=== PATIENT | female | born 1990 | race African-American/Black ===

== ENCOUNTER 2022-11-16 07:20 | Inpatient (IN) | payer MEDICAID, OTHER, SELFPAY ==
[2022-11-16] VITALS (8 sets, daily range): BP systolic 98–151; BP diastolic 55–68; PULSE 82–117; RESP 14–30; TEMP 36.7–39.6; O2SAT 93–98; BMI 31.6; BMI 31.4
--- NOTE | 2022-11-16 | ECG_ITS ---
Test Reason : chest pain Blood Pressure : / mmHG Vent. Rate : 111 BPM Atrial Rate : 111 BPM P-R Int : 126 ms QRS Dur : 068 ms QT Int : 288 ms P-R-T Axes : 048 023 031 degrees QTc Int : 391 ms Sinus tachycardia Possible Left atrial enlargement Septal infarct , age undetermined Abnormal ECG No previous ECGs available Referred By: Adrian Welch Electronically Signed By:GRANT URBAN
--- NOTE | ~2022-11-16 | CT_ITS ---
EXAMINATION: CT ANGIOGRAM OF THE CHEST WITH AND WITHOUT CONTRAST (CT PULMONARY ANGIOGRAM FOR PE) CLINICAL INFORMATION: Reason for Exam Fever, chest pain, dyspnea R/OP COMPARISON: None available. TECHNIQUE: Prior to contrast administration, noncontrast localization images were obtained. Subsequently, multidetector volumetric imaging was performed from the thoracic inlet to below the diaphragms following the administration of 80 mL Omnipaque 350 intravenous contrast. No contrast reaction reported Sagittal, coronal, and MIP oblique sagittal reformatted images were obtained on the CT workstation, uploaded to PACS, and reviewed. This CT examination was performed using dose optimization techniques as appropriate, variously including the following: *Automated exposure control *Adjustment of mA and/or kV according to patient size (this includes techniques or standardized protocols for targeted exams where dose is matched to indication/reason for exam; i.e. extremities or head) *Use of iterative reconstruction technique Total exam dose-length product 214.78 mGy-cm FINDINGS: QUALITY OF STUDY/CONTRAST BOLUS: Satisfactory. PULMONARY ARTERIES: No pulmonary emboli. THORACIC AORTA: No aneurysm. LUNG: There is dense consolidation with air bronchogram in the right lower lobe involving entire right lower lobe and consistent with pneumonia. In addition there are few smaller sized foci of airspace disease seen through the right upper lobe in the right middle lobe. On the left there is a focus of airspace disease seen through the left upper lobe extending in the left lower lobe PLEURA: No pleural effusion or pneumothorax. MEDIASTINUM: Normal heart size. No pericardial effusion. No hilar or mediastinal lymphadenopathy. No evidence of septal bowing or right heart strain. CORONARY ARTERY CALCIFICATION: None visualized on this study. CHEST WALL/AXILLA: No axillary or internal mammary lymphadenopathy. OSSEOUS STRUCTURES: No acute or suspicious osseous abnormality. UPPER ABDOMEN: Unremarkable. No reflux of contrast into the hepatic veins to suggest elevated right heart pressures. CT/CT angio chest PE protocol IMPRESSION: 1. No evidence of pulmonary embolism. 2. Multifocal airspace disease with dense consolidation in the right lower lobe, most likely pneumonia. VTE: negative.
--- NOTE | ~2022-11-16 | CT_ITS ---
EXAMINATION: CT ABDOMEN AND PELVIS WITH CONTRAST CLINICAL INFORMATION: Fever, abdominal pain, diarrhea and left lower quadrant tenderness COMPARISON: None available. TECHNIQUE: Multidetector volumetric images were obtained from the superior aspect of the liver through the pubic symphysis following administration 85 mL of Omnipaque 350 intravenous contrast. Sagittal and coronal reformatted images were obtained on the technologist's workstation. Oral contrast: Yes This CT examination was performed using dose optimization techniques as appropriate, variously including the following: *Automated exposure control *Adjustment of mA and/or kV according to patient size (this includes techniques or standardized protocols for targeted exams where dose is matched to indication/reason for exam; i.e. extremities or head) *Use of iterative reconstruction technique DLP: 575 mGy-cm FINDINGS: LUNG BASES: Right lower lobe dense consolidation with air bronchograms probably representing pneumonia. Small 2 cm nodular opacity in the left lower lobe probably representing small pneumonia. Trace right pleural effusion. LIVER, GALLBLADDER, AND BILIARY TREE: The liver is normal in size, shape, and attenuation. No focal hepatic lesion or biliary ductal dilatation is present. The gallbladder is unremarkable with no evidence of radiopaque gallstones, gallbladder wall thickening, or obvious pericholecystic inflammatory changes. PANCREAS: Unremarkable. SPLEEN: Unremarkable. ADRENAL GLANDS: Unremarkable. KIDNEYS AND URETERS: The kidneys are normal in size, shape, and attenuation. No hydronephrosis, hydroureter, or calculi seen. No perinephric stranding. Small cyst in the lower pole of the left kidney. No imaging follow-up recommended. BLADDER: Unremarkable. GASTROINTESTINAL TRACT: The small and large bowel are unremarkable. The appendix is unremarkable. ABDOMINAL WALL: No significant hernia is appreciated. LYMPH NODES: Normal. VASCULAR: Unremarkable. PELVIC VISCERA: Unremarkable. OSSEOUS STRUCTURES: Unremarkable. CT/CT abdomen pelvis w IV con IMPRESSION: Large right lower lobe pneumonia and probable small pneumonia in the left lower lobe. Very small right pleural effusion. No acute abdominal findings. Fleischner guidelines were followed.
--- NOTE | 2022-11-16 07:44 | ED_ITS ---
HPI - General Adult General Chief complaint: General Medical Stated complaint: Headache Sore Throat Etc Time Seen by Provider: 11/16/22 07:44 Source: patient Mode of arrival: ambulatory Limitations: no limitations History of Present Illness HPI narrative: 32-year-old female who presents emergency department for evaluation of headache, chest pain, abdominal pain, cough, shortness of breath, fever and diarrhea. Zev mills states that she became ill last Saturday (11/10/2022-6 days prior). Patient states that all of her symptoms started at once. She complains of a constant, throbbing headache, which is located diffusely throughout her head and is 6/10 at its worst. The headache came on gradually. She states that she has a cough which is nonproductive. She has chest pain which is worse with inspiration. She states she has shortness of breath at rest and dyspnea on exertion. She complains of diffuse abdominal pain which she describes as a pain which is 8/10 at its worst. Patient states she has had frequent watery diarrhea, she states that this occurs any time she drinks fluid and has had multiple episodes per day. She denies any blood in the diarrhea. She complains of feeling very weak and has diffuse myalgias and arthralgias. She has had urinary frequency with no dysuria. The patient denies any recent travel, she has not been on antibiotics. She is not aware of any sick contacts. She denies any tick bites and does not hike or walk wooded areas. Related Data Allergies Allergy/AdvReac Type Severity Reaction Status Date / Time No Known Allergies Allergy Verified 11/16/22 07:45 Review of Systems Review of Systems: Yes all other systems are reviewed and are negative [facility] Past Medical History [facility] Narrative: Past medical history: Low blood pressure. Surgical history: None. Social history: She denies tobacco, alcohol and drug use. Social History Social History Alcohol intake: never Smoked in Last 30 Days: No Use of substances other than those prescribed or required for medical reasons: No Advance Directives: No Advance Directives Information Provided: No Patient : No Physical Exam ED Vital Signs: Vital Signs - 24 hr 11/16/22 07:37 11/16/22 08:21 11/16/22 09:17 Temperature 103.2 F H Pulse Rate 117 H 114 H 98 Respiratory Rate 20 24 H 30 H Blood Pressure 115/66 114/68 109/63 Pulse Oximetry 95 96 98 Oxygen Delivery Method Room Air Room Air 11/16/22 09:31 Temperature 101.5 F H Pulse Rate 100 Respiratory Rate 29 H Blood Pressure 98/60 Pulse Oximetry 97 Oxygen Delivery Method Room Air BMI result Body Mass Index 31.6 Patient was febrile with a temperature of a 103.2 degrees, elevated heart rate of 117, normal blood pressure of 115/66. Exam: General: Awake, alert in no distress Head: Normocephalic, atraumatic EENT: PERRL, Lids normal, sclera normal, conjunctiva normal, nose normal , ears normal, throat without erythema or exudates Neck: Supple, no adenopathy, trachea midline and nontender Lung: breath sounds symmetric, diffuse rales right greater than left, no wheezing or rhonchi Chest: symmetric movement, nontender Heart: Tachycardia with normal rhythm, normal S1, S2 no murmurs or rubs Abdomen: soft, mild to moderate diffuse tenderness, moderate left lower quadrant tenderness, nondistended, normal bowel sounds Back: no vertebral tenderness, no CVAT Extremities: no deformities, moves all extremities symmetrically Skin: no rashes, no lesion, normal color and warmth Neuro: Awake, alert, oriented, normal speech, cranial nerves intact, moves all extremities symmetrically Psych: Pleasant, cooperative Medications Administered Discontinued Medications Generic Name Dose Route Start Last Admin Trade Name Freq PRN Reason Stop Dose Admin Acetaminophen 975 mg 11/16/22 07:51 11/16/22 08:18 Acetaminophen 325 Mg Tablet PO 11/16/22 07:52 975 mg ONCE ONE Administration Sodium Chloride 1,710 mls @ 1,710 mls/hr 11/16/22 07:48 11/16/22 09:17 Ns IV 11/16/22 08:47 Infused .Q1H STA Infusion Iohexol 85 ml 11/16/22 09:17 11/16/22 09:18 Iohexol 350 Mg/Ml 100 Ml Infus..Btl IV 11/16/22 09:18 85 ml ONCE ONE Administration Ketorolac Tromethamine 15 mg 11/16/22 08:05 11/16/22 08:18 Ketorolac Tromethamine 15 Mg/Ml Vial IVPUSH 11/16/22 08:06 15 mg ONCE STA Administration Ondansetron HCl 4 mg 11/16/22 08:05 11/16/22 08:18 Ondansetron Hcl 4 Mg/2 Ml Vial IVPUSH 11/16/22 08:06 4 mg ONCE ONE Administration Medical Decision Making Medical Decision Making [facility] Narrative: 08:15: 32-year-old female who presents emergency department for evaluation of headache, chest pain, shortness of breath, cough, abdominal pain, diarrhea, weakness and fever times 6 days. Patient's vital signs did reveal an elevated temperature of 103.2 degrees F and elevated heart rate of 117. Patient does meet SIRS criteria. Patient was made a sepsis alert. Patient's lung exam did reveal diffuse rales increased on the right compared to the left, abdominal exam revealed diffuse tenderness with increased left lower quadrant tenderness. The following evaluation was ordered: CBC, CMP, lipase, lactic acid, PT/INR, PTT, quantitative beta-hCG, C diff, GI panel, influenza and COVID 19 test, urinalysis, blood culture x2. I will obtain the CT pulmonary angiogram PE protocol and CT scan of the abdomen pelvis with IV contrast. I did order normal saline 30 cc/kilogram bolus based on the patient's ideal body weight (BMI is 31.6). 10:46: The patient's laboratory evaluation revealed a normal WBC and normal lactic acid with slight elevation in her LFTs. Patient's CT pulmonary angiogram PE protocol revealed no pulmonary embolism but the patient does have large right lower lobe infiltrate. CT scan of the abdomen pelvis with IV contrast did not reveal any acute abdominal findings, radiologist did note the right-sided pneumonia as well as possible left lower lobe pneumonia. Patient's presentation is consistent with a bilobar pneumonia, I ordered ceftriaxone 1 g IV and Zithromax 500 mg IV. I did discuss the patient's presentation over tiger text with the covering hospitalist, Dr. Rao. Differential Diagnosis Differential Diagnoses: The differential diagnosis associated with the presentation includes 08:15: Differential diagnosis includes was not limited to viral syndrome, pneumonia, urinary tract infection, COVID-19, influenza, C difficile colitis, diverticulitis, pulmonary embolism Admission/Observation Consideration of admission/observation: Escalation of care including admissio n/observation considered Consult Healthcare Provider Management of the patient was discussed with: Hospitalist Lab Data [facility] Lab Attestation statement: I reviewed the patient's lab results. My independent interpretation patient's laboratory evaluation is as follows: WBC was normal 9500. AST and ALT were elevated 52 and 46. COVID-19 influenza were negative. Lactic acid was normal at 1.7. Urinalysis was positive for protein, microscopic was negative for WBCs and bacteria. 11/16/22 08:01 11/16/22 08:01 Labs: Lab Results 11/16/22 11/16/22 11/16/22 Range/Units 08:01 08:01 08:01 WBC 9.5 (4.8-10.8) X10*3/uL RBC 4.33 (4.20-5.50) X10*6/uL Hgb 11.9 L (12.0-16.0) g/dl Hct 36.3 L (37.0-47.0) % MCV 83.8 (80.0-98.0) fL MCH 27.5 (27.0-33.0) pg MCHC 32.8 (31.0-35.0) g/dl RDW 13.2 (11.0-16.0) % Plt Count 180 (160-400) X10*3/uL MPV 11.1 (9.4-12.3) fL Immature Gran % (Auto) 0.8 H (0.0-0.4) % Neut % (Auto) 81.3 H (45-73) % Lymph % (Auto) 10.8 L (20-40) % [place] % (Auto) 6.2 (2-11) % Eos % (Auto) 0.7 (0-4) % Baso % (Auto) 0.2 (0-2) % Lymph # (Auto) 1.0 L (1.2-4.9) X10*3/uL [place] # (Auto) 0.6 (0.1-1.2) X10*3/uL Eos # (Auto) 0.1 (0.0-0.4) X10*3/uL Baso # (Auto) 0.0 (0.0-0.2) X10*3/uL Abs Immat Gran (auto) 0.08 H (0.00-0.03) X10*3/uL Absolute Neuts (auto) 7.7 (2.0-8.3) x10*3/uL Absolute Nucleated RBC 0.000 (0.0-0.012) X10*3/uL Nucleated RBC % (auto) 0.0 (0.0-0.2) /100WBC PT 16.0 H (11.1-13.3) SEC INR 1.3 H (0.9-1.1) APTT 27.0 (26.0-36.4) SEC Sodium 134 L (135-145) mmol/L Potassium 4.1 (3.3-5.1) mmol/L Chloride 103 (96-108) mmol/L Carbon Dioxide 23 (22-29) mmol/L Anion Gap 12 (12-20) BUN 8 L (9-16) mg/dL Creatinine 1.02 (0.5-1.4) mg/dL Estim Creat Clear Calc 84.2 Estimated GFR > 60 Random Glucose 91 (60-115) mg/dL Lactic Acid (0.5-2.0) mmol/L Calcium 9.5 (8.4-10.2) mg/dL Total Bilirubin 0.3 (0.0-1.0) mg/dL AST 52 H (5-31) U/L ALT 46 H (0-31) U/L Alkaline Phosphatase 71 (39-117) U/L Total Protein 7.5 (6.5-8.0) g/dL Albumin 3.5 (3.5-5.0) g/dL Lipase 27 (8-78) U/L Beta HCG, Quant mIU/mL Urine Color Urine Appearance Urine pH (5.0-9.0) Ur Specific [employer] (1.005-1.025) Urine Protein (Neg-Trace) mg/dL Urine Glucose (UA) (Negative) mg/dL Urine Ketones (Negative) mg/dL Urine Blood (Negative) Urine Nitrite (Negative) Ur Leukocyte Esterase (Negative) Urine RBC (0-2) /HPF Urine WBC (0-5) /HPF Ur Squamous Epith Cells (0-2) /HPF Urine Bacteria (None Seen) Hyaline Casts (0-2) /LPF COVID-19 (MERLE) (Negative) COVID-19 Clin Com Influenza Type A (NIYA) (Negative) Influenza Type B (NIYA) (Negative) Influenza A & B Note 11/16/22 11/16/22 11/16/22 Range/Units 08:01 08:01 08:06 WBC (4.8-10.8) X10*3/uL RBC (4.20-5.50) X10*6/uL Hgb (12.0-16.0) g/dl Hct (37.0-47.0) % MCV (80.0-98.0) fL MCH (27.0-33.0) pg MCHC (31.0-35.0) g/dl RDW (11.0-16.0) % Plt Count (160-400) X10*3/uL MPV (9.4-12.3) fL Immature Gran % (Auto) (0.0-0.4) % Neut % (Auto) (45-73) % Lymph % (Auto) (20-40) % [place] % (Auto) (2-11) % Eos % (Auto) (0-4) % Baso % (Auto) (0-2) % Lymph # (Auto) (1.2-4.9) X10*3/uL [place] # (Auto) (0.1-1.2) X10*3/uL Eos # (Auto) (0.0-0.4) X10*3/uL Baso # (Auto) (0.0-0.2) X10*3/uL Abs Immat Gran (auto) (0.00-0.03) X10*3/uL Absolute Neuts (auto) (2.0-8.3) x10*3/uL Absolute Nucleated RBC (0.0-0.012) X10*3/uL Nucleated RBC % (auto) (0.0-0.2) /100WBC PT (11.1-13.3) SEC INR (0.9-1.1) APTT (26.0-36.4) SEC Sodium (135-145) mmol/L Potassium (3.3-5.1) mmol/L Chloride (96-108) mmol/L Carbon Dioxide (22-29) mmol/L Anion Gap (12-20) BUN (9-16) mg/dL Creatinine (0.5-1.4) mg/dL Estim Creat Clear Calc Estimated GFR Random Glucose (60-115) mg/dL Lactic Acid 1.7 (0.5-2.0) mmol/L Calcium (8.4-10.2) mg/dL Total Bilirubin (0.0-1.0) mg/dL AST (5-31) U/L ALT (0-31) U/L Alkaline Phosphatase (39-117) U/L Total Protein (6.5-8.0) g/dL Albumin (3.5-5.0) g/dL Lipase (8-78) U/L Beta HCG, Quant < 2 mIU/mL Urine Color Urine Appearance Urine pH (5.0-9.0) Ur Specific [employer] (1.005-1.025) Urine Protein (Neg-Trace) mg/dL Urine Glucose (UA) (Negative) mg/dL Urine Ketones (Negative) mg/dL Urine Blood (Negative) Urine Nitrite (Negative) Ur Leukocyte Esterase (Negative) Urine RBC (0-2) /HPF Urine WBC (0-5) /HPF Ur Squamous Epith Cells (0-2) /HPF Urine Bacteria (None Seen) Hyaline Casts (0-2) /LPF COVID-19 (MERLE) Negative (Negative) COVID-19 Clin Com See Note Influenza Type A (NIYA) (Negative) Influenza Type B (NIYA) (Negative) Influenza A & B Note 11/16/22 11/16/22 Range/Units 08:18 09:45 WBC (4.8-10.8) X10*3/uL RBC (4.20-5.50) X10*6/uL Hgb (12.0-16.0) g/dl Hct (37.0-47.0) % MCV (80.0-98.0) fL MCH (27.0-33.0) pg MCHC (31.0-35.0) g/dl RDW (11.0-16.0) % Plt Count (160-400) X10*3/uL MPV (9.4-12.3) fL Immature Gran % (Auto) (0.0-0.4) % Neut % (Auto) (45-73) % Lymph % (Auto) (20-40) % [place] % (Auto) (2-11) % Eos % (Auto) (0-4) % Baso % (Auto) (0-2) % Lymph # (Auto) (1.2-4.9) X10*3/uL [place] # (Auto) (0.1-1.2) X10*3/uL Eos # (Auto) (0.0-0.4) X10*3/uL Baso # (Auto) (0.0-0.2) X10*3/uL Abs Immat Gran (auto) (0.00-0.03) X10*3/uL Absolute Neuts (auto) (2.0-8.3) x10*3/uL Absolute Nucleated RBC (0.0-0.012) X10*3/uL Nucleated RBC % (auto) (0.0-0.2) /100WBC PT (11.1-13.3) SEC INR (0.9-1.1) APTT (26.0-36.4) SEC Sodium (135-145) mmol/L Potassium (3.3-5.1) mmol/L Chloride (96-108) mmol/L Carbon Dioxide (22-29) mmol/L Anion Gap (12-20) BUN (9-16) mg/dL Creatinine (0.5-1.4) mg/dL Estim Creat Clear Calc Estimated GFR Random Glucose (60-115) mg/dL Lactic Acid (0.5-2.0) mmol/L Calcium (8.4-10.2) mg/dL Total Bilirubin (0.0-1.0) mg/dL AST (5-31) U/L ALT (0-31) U/L Alkaline Phosphatase (39-117) U/L Total Protein (6.5-8.0) g/dL Albumin (3.5-5.0) g/dL Lipase (8-78) U/L Beta HCG, Quant mIU/mL Urine Color Yellow Urine Appearance Clear Urine pH 6.5 (5.0-9.0) Ur Specific [employer] >= 1.030 H (1.005-1.025) Urine Protein 30 (1+) H (Neg-Trace) mg/dL Urine Glucose (UA) Negative (Negative) mg/dL Urine Ketones Trace (Negative) mg/dL Urine Blood Negative (Negative) Urine Nitrite Negative (Negative) Ur Leukocyte Esterase Negative (Negative) Urine RBC 0-2 (0-2) /HPF Urine WBC 0-5 (0-5) /HPF Ur Squamous Epith Cells 3-5 (0-2) /HPF Urine Bacteria None Seen (None Seen) Hyaline Casts 0-2 (0-2) /LPF COVID-19 (MERLE) (Negative) COVID-19 Clin Com Influenza Type A (NIYA) Negative (Negative) Influenza Type B (NIYA) Negative (Negative) Influenza A & B Note See Note Independent Interpretation I performed an independent interpretation of an: CT Scan Radiology Impression Discussion of test interpretation with radiology: I have reviewed the radiologist's reading. Radiologist Impression: CT angio chest PE protocol IMPRESSION: 1. No evidence of pulmonary embolism. 2. Multifocal airspace disease with dense consolidation in the right lower lobe, most likely pneumonia. VTE: negative. Dictated By:Eula Maravilla MD CT abdomen pelvis w IV con IMPRESSION: Large right lower lobe pneumonia and probable small pneumonia in the left lower lobe. Very small right pleural effusion. No acute abdominal findings. Fleischner guidelines were followed. Dictated By:Roxana Valdez MD Critical Care Time Critical Care Time Critical Care Time: Yes Total Critical Care Time: 40 Attestation: Critical Care: The patient was critically ill with a high probability of imminent or life threatening deterioration. I spent greater than 30 minutes of discontinuous time evaluating the patient,delivering critical care at the bedside, discussing and evaluating pertinent data with consultants. Critical care time does not include time spent performing separately billable procedures or teaching. Total time spent performing critical care was 40 minutes.
[2022-11-16 08:08] LABS: MANUAL DIFF FLAG NO
[2022-11-16 08:11] LABS: Basophils Percent Auto 0.2 % (0-2); Eosinophils Absolute Auto 0.1 X10*3/uL (0.0-0.4); Eosinophils Percent Auto 0.7 % (0-4); Hematocrit 36.3 % (37.0-47.0); Hemoglobin 11.9 g/dl (12.0-16.0); Imm Gran Abs Auto 0.08 X10*3/uL (0.00-0.03); Imm Gran Pct Auto 0.8 % (0.0-0.4); Lymphocytes Percent Auto 10.8 % (20-40); Mean Corpuscular HGB Conc 32.8 g/dl (31.0-35.0); Mean Corpuscular Hemoglobin 27.5 pg (27.0-33.0); Mean Corpuscular Volume 83.8 fL (80.0-98.0); Mean Platelet Volume 11.1 fL (9.4-12.3); Monocytes Absolute Auto 0.6 X10*3/uL (0.1-1.2); Monocytes Percent Auto 6.2 % (2-11); Neutrophils Absolute Auto 7.7 x10*3/uL (2.0-8.3); Neutrophils Percent Auto 81.3 % (45-73); Platelet Count 180 X10*3/uL (160-400); Red Blood Count 4.33 X10*6/uL (4.20-5.50); Red Cell Distribution Width 13.2 % (11.0-16.0); White Blood Count 9.5 X10*3/uL (4.8-10.8)
[2022-11-16 08:15] LABS: INTERNATIONAL NORM RATIO 1.3 (0.9-1.1)
[2022-11-16] MEDS: Acetaminophen 325 MG TABLET 975 MG PO (08:18)
[2022-11-16] MEDS: ondansetron HCL 4 MG/2 ML VIAL IVPUSH (08:18)
[2022-11-16] MEDS: Ketorolac Tromethamine 15 MG/ML VIAL IVPUSH (08:18)
[2022-11-16 08:33] LABS: Lactic Acid 1.7 mmol/L (0.5-2.0)
[2022-11-16 08:34] LABS: COVID-19 Test Negative (Negative); IDNOW Serial# BCCEAD1C
[2022-11-16 08:35] LABS: Alanine Aminotransferase 46 U/L (0-31); Albumin Level 3.5 g/dL (3.5-5.0); Alkaline Phosphatase 71 U/L (39-117); Anion Gap 12 (12-20); Aspartate Amino Transferase 52 U/L (5-31); Bilirubin Total 0.3 mg/dL (0.0-1.0); Blood Urea Nitrogen 8 mg/dL (9-16); Calcium 9.5 mg/dL (8.4-10.2); Carbon Dioxide 23 mmol/L (22-29); Chloride 103 mmol/L (96-108); Creatinine Clr Calc Pharmacy 84.2; Estimated Glomerular Filt Rate > 60; Glucose Random 91 mg/dL (60-115); Lipase 27 U/L (8-78); Potassium 4.1 mmol/L (3.3-5.1); Sodium 134 mmol/L (135-145); Total Protein 7.5 g/dL (6.5-8.0)
[2022-11-16 08:41] LABS: HCG Quantitative < 2 mIU/mL
[2022-11-16 09:04] LABS: IDNOW Serial# 9DB6401D; Influenza A Negative (Negative); Influenza B2 Negative (Negative)
[2022-11-16] MEDS: iohexoL 350 MG/ML 100 ML INFUS..BTL 85 ML IV (09:18)
[2022-11-16 10:04] LABS: Appearance Urine Clear; Color Urine Yellow; Glucose Urine UA Negative (Negative); Leukocyte Esterase Urine Negative (Negative); Nitrite Urine Negative (Negative); PH 6.5 (5.0-9.0); Specific Gravity - Urine >= 1.030 (1.005-1.025); UMIC TRIGGER UACC YES; Urine Blood Negative (Negative); Urine Ketones Trace mg/dL (Negative); Urine Protein 30 (1+) mg/dL (Neg-Trace)
[2022-11-16 10:09] LABS: RBC Urine 0-2 /HPF (0-2); WBC Urine 0-5 /HPF (0-5)
[2022-11-16 10:10] LABS: Bacteria Urine None Seen (None Seen); Hyaline Casts Urine 0-2 /LPF (0-2)
[2022-11-16] MEDS: cefTRIAXone sodium 1 GM in 0.9 % Sodium Chloride 50 ML IV (11:04)
--- NOTE | 2022-11-16 11:22 | PHA.MEDREC ---
Pharmacy Consult ? Medication Reconciliation Pharmacy has completed the medication reconciliation.
[2022-11-16] MEDS: Azithromycin 500 MG in 0.9 % Sodium Chloride 250 ML 125 MG IV (11:42)
--- NOTE | 2022-11-16 12:10 | PM.IMHP ---
History of Present Illness Date of Service: 11/16/22 Chief Complaint: Fever, cough, headach A previously healthy 32 years old lady who presents to the hospital with 1 weeks of SOB, fever and cough. She reports complaining of headache at the beginning which worsened over the last few day associated with fever, chills, cough, nausea, diarrha and generalized weakness. denies chest pain, palpitations, LOC, rash, urinary symptoms. she tried Tylenol at home and thought she was improving before feeling really sick last 2 days. In ED found to be febrile, tachycardic with evidence of pneumonia on CXR. admitted for treatment. Review of Systems Review of Systems: reporting fever, chills and weakness No chest pain, palpitation having shortness of breath and coughing No abdominal pain, nausea or vomiting No urinary symptoms No any rash or wounds PMFSH Social History Alcohol intake: never Patient Tobacco Use Status: Never used Tobacco Smoked in Last 30 Days: No Use of substances other than those prescribed or required for medical reasons: No Advance Directives: No Advance Directives Information Provided: No Nutrition Risks: No Nutritional Risk Patient : No Meds Allergies Allergy/AdvReac Type Severity Reaction Status Date / Time No Known Allergies Allergy Verified 11/16/22 07:45 Active Medications: Current Medications Acetaminophen (Acetaminophen 325 Mg Tablet) 650 mg PO Q6H PRN PRN Reason: Pain, Mild (Pain Scale 1-3) Azithromycin 500 mg/ Sodium (Chloride) 250 mls @ 125 mls/hr IV ONCE ONE Stop: 11/16/22 12:38 Last Admin: 11/16/22 11:42 Dose: 125 mls/hr Piperacillin Sod/Tazobactam (Sod 4.5 gm/ Sodium Chloride) 100 mls @ 200 mls/hr IV Q6H AGGIE Ondansetron HCl (Ondansetron Hcl 4 Mg/2 Ml Vial) 4 mg IVPUSH Q8H PRN PRN Reason: Nausea and Vomiting Sodium Chloride (0.9 % Sodium Chloride Flush 3 Ml Syringe) 3 ml IVFLUSH QSHIFT [facility] Home Medications Medication Instructions Recorded Confirmed Last Taken Type desogestrel 0.15 mg-ethinyl 1 tab PO DAILY 11/16/22 11/16/22 11/10/22 History estradiol 0.03 mg tablet (Apri) Physical Exam Vital Signs and Narrative: Vital Signs: Last Vital Signs Temp 101.5 F H 11/16/22 09:31 Pulse 85 11/16/22 11:04 Resp 22 H 11/16/22 11:04 BP 116/60 11/16/22 11:04 Pulse Ox 98 11/16/22 11:04 O2 Del Method Room Air 11/16/22 11:04 BMI result Body Mass Index 31.6 Const: Other: Constitutional : Awake, interactive, not in distress Neck : Normal inspection, Supple Cardiovascular : RRR, no JVP, no lower extremity edema Respiratory : good bilateral air entry, basal crackles more on right side, on RA Gastrointestinal: soft, lax, Normal bowel sounds, Non tender Skin : Warm, Dry Neurological : Alert & oriented x3, No focal deficit Results Labs 11/16/22 08:01 11/16/22 08:01 Labs: Laboratory Results - last 24 hr 11/16/22 11/16/22 11/16/22 08:01 08:01 08:01 MCV 83.8 MCH 27.5 MCHC 32.8 RDW 13.2 Plt Count 180 MPV 11.1 Immature Gran % (Auto) 0.8 H Neut % (Auto) 81.3 H Lymph % (Auto) 10.[address] [place] % (Auto) 6.2 Eos % (Auto) 0.7 Baso % (Auto) 0.2 Lymph # (Auto) 1.[address] # (Auto) 0.6 Eos # (Auto) 0.1 Baso # (Auto) 0.0 Abs Immat Gran (auto) 0.08 H Absolute Neuts (auto) 7.7 Absolute Nucleated RBC 0.000 Nucleated RBC % (auto) 0.0 PT 16.0 H INR 1.3 H APTT 27.0 Anion Gap 12 Estim Creat Clear Calc 84.2 Estimated GFR > 60 Random Glucose 91 Lactic Acid Calcium 9.5 Total Bilirubin 0.3 AST 52 H ALT 46 H Alkaline Phosphatase 71 Total Protein 7.5 Albumin 3.5 Lipase 27 Beta HCG, Quant Urine Color Urine Appearance Urine pH Ur Specific [place] Urine Protein Urine Glucose (UA) Urine Ketones Urine Blood Urine Nitrite Ur Leukocyte Esterase Urine RBC Urine WBC Ur Squamous Epith Cells Urine Bacteria Hyaline Casts COVID-19 (MERLE) COVID-19 Clin Com Influenza Type A (NIYA) Influenza Type B (NIYA) Influenza A & B Note 11/16/22 11/16/22 11/16/22 08:01 08:01 08:06 MCV MCH MCHC RDW Plt Count MPV Immature Gran % (Auto) Neut % (Auto) Lymph % (Auto) [place] % (Auto) Eos % (Auto) Baso % (Auto) Lymph # (Auto) [place] # (Auto) Eos # (Auto) Baso # (Auto) Abs Immat Gran (auto) Absolute Neuts (auto) Absolute Nucleated RBC Nucleated RBC % (auto) PT INR APTT Anion Gap Estim Creat Clear Calc Estimated GFR Random Glucose Lactic Acid 1.7 Calcium Total Bilirubin AST ALT Alkaline Phosphatase Total Protein Albumin Lipase Beta HCG, Quant < 2 Urine Color Urine Appearance Urine pH Ur Specific [place] Urine Protein Urine Glucose (UA) Urine Ketones Urine Blood Urine Nitrite Ur Leukocyte Esterase Urine RBC Urine WBC Ur Squamous Epith Cells Urine Bacteria Hyaline Casts COVID-19 (MERLE) Negative COVID-19 Clin Com See Note Influenza Type A (NIYA) Influenza Type B (NIYA) Influenza A & B Note 11/16/22 11/16/22 08:18 09:45 MCV MCH MCHC RDW Plt Count MPV Immature Gran % (Auto) Neut % (Auto) Lymph % (Auto) [place] % (Auto) Eos % (Auto) Baso % (Auto) Lymph # (Auto) [facility] # (Auto) Eos # (Auto) Baso # (Auto) Abs Immat Gran (auto) Absolute Neuts (auto) Absolute Nucleated RBC Nucleated RBC % (auto) PT INR APTT Anion Gap Estim Creat Clear Calc Estimated GFR Random Glucose Lactic Acid Calcium Total Bilirubin AST ALT Alkaline Phosphatase Total Protein Albumin Lipase Beta HCG, Quant Urine Color Yellow Urine Appearance Clear Urine pH 6.5 Ur Specific [place] >= 1.030 H Urine Protein 30 (1+) H Urine Glucose (UA) Negative Urine Ketones Trace Urine Blood Negative Urine Nitrite Negative Ur Leukocyte Esterase Negative Urine RBC 0-2 Urine WBC 0-5 Ur Squamous Epith Cells 3-5 Urine Bacteria None Seen Hyaline Casts 0-2 COVID-19 (MERLE) COVID-19 Clin Com Influenza Type A (NIYA) Negative Influenza Type B (NIYA) Negative Influenza A & B Note See Note Imaging Radiologist's Impressions: Impressions Abdomen/Pelvis CT 11/16/22 09:12 IMPRESSION: Large right lower lobe pneumonia and probable small pneumonia in the left lower lobe. Very small right pleural effusion. No acute abdominal findings. Fleischner guidelines were followed. Chest CTA 11/16/22 09:12 IMPRESSION: 1. No evidence of pulmonary embolism. 2. Multifocal airspace disease with dense consolidation in the right lower lobe, most likely pneumonia. VTE: negative. Assessment and Plan (1) Sepsis: Status: Acute (2) Pneumonia: Qualifiers: Laterality: bilateral Lung location: lower lobe of lung Pneumonia type: due to unspecified organism Qualified Code(s): J18.9 - Pneumonia, unspecified organism Status: Acute (3) Hyponatremia: Status: Acute (4) Transaminitis: Status: Acute Plan A previously healthy 32 years old lady who presents to the hospital with 1 weeks of SOB, fever and cough. Sepsis 2/2 community acquired pneumonia Leukocytotis and tachycardia , normal LA CXR, CT as reported Start Zosyn along with Azithromycin Pending blood cultures Tylenol for fever Tessalon for cough mild hyponatremia liekly from acute illness, to follow BMP Transaminitis likely related to sepsis, to repeat LFT DVT PPx early ambulation Patient needs overnight hospital stay for treatment of sepsis pending final blood cultures Time Spent With Patient Time: Total time managing care of this patient today ____ minutes. Quality Stroke Does the patient have a stroke diagnosis?: No VTE Prior VTE?: No VTE Risk Level:: Medical - low VTE Device Contraindication: Treatment Not Indicated VTE Drug Contraindication: Treatment Not Indicated
[2022-11-16 15:24] LABS: Amphetamine Screen Urine Not Detected (Not Detect); Barbiturates, Urine Not Detected (Not Detect); Benzodiazepines Screen Urine Not Detected (Not Detect); Cannabinoid Screen Urine Not Detected (Not Detect); Cocaine Screen Urine Not Detected (Not Detect); Fentanyl, urine Not Detected (Not Detect); Opiate Screen Urine Not Detected (Not Detect); Phencyclidine Screen Urine Not Detected (Not Detect)
[2022-11-16] MEDS: Benzonatate 100 MG CAPSULE PO ×2 (15:28→20:37)
[2022-11-16] MEDS: Piperacillin Sodium/Tazobactam 4.5 GM in 0.9 % Sodium Chloride 100 ML IV ×2 (15:28→20:38)
[2022-11-16] MEDS: 0.9 % Sodium Chloride Flush 3 ML SYRINGE IVFLUSH (15:29)
[2022-11-16] MEDS: Acetaminophen 325 MG TABLET 650 MG PO (16:00)
[2022-11-17] MEDS: 0.9 % Sodium Chloride Flush 3 ML SYRINGE IVFLUSH ×4 (00:03→20:25)
[2022-11-17] MEDS: Piperacillin Sodium/Tazobactam 4.5 GM in 0.9 % Sodium Chloride 100 ML IV ×4 (03:41→20:25)
[2022-11-17 04:00] VITALS: BP 117/55; PULSE 90; RESP 16; TEMP 38.1; O2SAT 94
--- NOTE | 2022-11-17 04:53 | PC.NURSE ---
Patient with low grade temp and headache, refusing tylenol at this time.
[2022-11-17 05:58] LABS: Hematocrit 35.4 % (37.0-47.0); Hemoglobin 11.7 g/dl (12.0-16.0); Mean Corpuscular HGB Conc 33.1 g/dl (31.0-35.0); Mean Corpuscular Hemoglobin 27.5 pg (27.0-33.0); Mean Corpuscular Volume 83.1 fL (80.0-98.0); Mean Platelet Volume 12.1 fL (9.4-12.3); Platelet Count 195 X10*3/uL (160-400); Red Blood Count 4.26 X10*6/uL (4.20-5.50); Red Cell Distribution Width 13.5 % (11.0-16.0); White Blood Count 7.8 X10*3/uL (4.8-10.8)
[2022-11-17 06:18] LABS: Anion Gap 14 (12-20); Blood Urea Nitrogen 6 mg/dL (9-16); Calcium 8.7 mg/dL (8.4-10.2); Carbon Dioxide 22 mmol/L (22-29); Chloride 104 mmol/L (96-108); Creatinine Clr Calc Pharmacy 80.8; Estimated Glomerular Filt Rate 59; Glucose Random 92 mg/dL (60-115); Potassium 3.9 mmol/L (3.3-5.1); Sodium 136 mmol/L (135-145)
[2022-11-17 07:30] VITALS: BP 109/60; PULSE 83; RESP 18; TEMP 37.8; O2SAT 97
[2022-11-17] MEDS: Benzonatate 100 MG CAPSULE PO ×3 (08:58→20:25)
[2022-11-17] MEDS: Acetaminophen 325 MG TABLET 650 MG PO ×2 (08:58→20:26)
--- NOTE | 2022-11-17 09:58 | MHC.CM.PN ---
PT REPORTS SHE LIVES WITH HER NIECE AND HOUSING IS SECURE SHE DENIES USE OF DME OR HOME SERVICES PT HAS NO HCP, DECLINES TO COMPLETE ONE SHE HAS NO HEALTH INSURANCE, REFERRAL SENT TO [facility] PT AWARE THEY WILL CONTACT HER AND ASSIST HER WITH OBTAINING HEALTH INSURANCE SHE WAS ENCOURAGED TO OBTAIN A PCP ONCE INSURANCE IS ACTIVE PT DOES REPORT OCCASIONAL FOOD INSECURITY, [id number] INFO HANDOUT PROVIDED DCP: HOME NO SERVICES PT REPORTS SHE WILL HAVE A RIDE
--- NOTE | 2022-11-17 10:28 | HO.PM.IMPN ---
Subjective Subjective Date of Service: 11/17/22 Interval History: Seen and evaluated Feels better overall but still chilly and SOB On RA still spiking low grade fevers Review of Systems reporting chills and weakness No chest pain, palpitation having shortness of breath and coughing No abdominal pain, nausea or vomiting No urinary symptoms No any rash or wounds Physical Exam Vital Signs: Vital Signs: Last Vital Signs Temp 100.0 F 11/17/22 07:30 Pulse 83 11/17/22 07:30 Resp 18 11/17/22 07:30 BP 109/60 11/17/22 07:30 Pulse Ox 97 11/17/22 07:30 O2 Del Method Room Air 11/17/22 07:30 BMI result Body Mass Index 31.4 Const: Other: Constitutional : Awake, interactive, weak, not in distress Neck : Normal inspection, Supple Cardiovascular : RRR, no JVP, no lower extremity edema Respiratory : good bilateral air entry, basal crackles more on right side, on RA Gastrointestinal: soft, lax, Normal bowel sounds, Non tender Skin : Warm, Dry Neurological : Alert & oriented x3, No focal deficit Objective Data Active Medications Acetaminophen (Acetaminophen 325 Mg Tablet) 650 mg PO Q6H PRN PRN Reason: Pain, Mild (Pain Scale 1-3) Last Admin: 11/17/22 08:58 Dose: 650 mg Documented By: JONO Benzonatate (Benzonatate 100 Mg Capsule) 100 mg PO TID [facility] Last Admin: 11/17/22 08:58 Dose: 100 mg Documented By: JONO Piperacillin Sod/Tazobactam (Sod 4.5 gm/ Sodium Chloride) 100 mls @ 200 mls/hr IV Q6H [facility] Last Infusion: 11/17/22 09:37 Dose: 0 mls/hr Documented By: JONO Azithromycin 500 mg/ Sodium (Chloride) 250 mls @ 125 mls/hr IV Q24H [facility] Ondansetron HCl (Ondansetron Hcl 4 Mg/2 Ml Vial) 4 mg IVPUSH Q8H PRN PRN Reason: Nausea and Vomiting Sodium Chloride (0.9 % Sodium Chloride Flush 3 Ml Syringe) 3 ml IVFLUSH QSHIFT [facility] Last Admin: 11/17/22 08:58 Dose: 3 ml Documented By: JONO Labs 11/17/22 05:27 11/17/22 05:27 Labs: Laboratory Results - last 24 hr 11/16/22 11/17/22 11/17/22 09:45 05:27 05:27 MCV 83.1 MCH 27.5 MCHC 33.1 RDW 13.5 Plt Count 195 MPV 12.1 Absolute Nucleated RBC 0.000 Nucleated RBC % (auto) 0.0 Anion Gap 14 Estim Creat Clear Calc 80.8 Estimated GFR 59 Random Glucose 92 Calcium 8.7 D Urine Opiates Screen Not Detected Urine Fentanyl Screen Not Detected Ur Barbiturates Screen Not Detected Ur Phencyclidine Scrn Not Detected Ur Amphetamines Screen Not Detected U Benzodiazepines Scrn Not Detected Urine Cocaine Screen Not Detected U Marijuana (THC) Screen Not Detected Microbiology Microbiology Results: Microbiology 11/16/22 08:11 Blood Culture - Preliminary Blood - Venous No growth after 24 hours. 11/16/22 08:01 Blood Culture - Preliminary Blood - Venous No growth after 24 hours. Assessment and Plan (1) Transaminitis: Status: Acute (2) Hyponatremia: Status: Acute (3) Sepsis: Status: Acute (4) Pneumonia: Status: Acute Plan A previously healthy 32 years old lady who presents to the hospital with 1 weeks of SOB, fever and cough. Sepsis 2/2 community acquired pneumonia CXR, CT as reported negative tox screen Pending blood cultures Continue Zosyn along with Azithromycin Tylenol for fever Tessalon for cough mild hyponatremia resolved Transaminitis likely related to sepsis, to repeat LFT DVT PPx early ambulation Patient needs overnight hospital stay for treatment of sepsis pending final blood cultures Time Spent With Patient Time: Total time managing care of this patient today ____ minutes. Quality Stroke Does the patient have a stroke diagnosis?: No VTE Prior VTE?: No VTE Risk Level:: Medical - low VTE Device Contraindication: Treatment Not Indicated VTE Drug Contraindication: Treatment Not Indicated
[2022-11-17 10:50] LABS: Alanine Aminotransferase 44 U/L (0-31); Albumin Level 3.2 g/dL (3.5-5.0); Alkaline Phosphatase 54 U/L (39-117); Aspartate Amino Transferase 41 U/L (5-31); Bilirubin Direct 0.2 mg/dL (0.0-0.5); Bilirubin Total 0.3 mg/dL (0.0-1.0)
[2022-11-17] MEDS: Azithromycin 500 MG in 0.9 % Sodium Chloride 250 ML 125 MG IV (11:41)
[2022-11-17 15:05] LABS: Adenovirus F 40/41 Not Detected (Not Detect.); Astrovirus Not Detected (Not Detect.); Campylobacter Not Detected (Not Detect.); Cryptosporidium Not Detected (Not Detect.); Cyclospora cayetanensis Not Detected (Not Detect.); E. coli EAEC Not Detected (Not Detect.); E. coli EPEC Not Detected (Not Detect.); E. coli ETEC Not Detected (Not Detect.); E. coli STEC Not Detected (Not Detect.); Entamoeba histolytica Not Detected (Not Detect.); Giardia lamblia Not Detected (Not Detect.); Norovirus GI/GII Not Detected (Not Detect.); Plesiomonas shigelloides Not Detected (Not Detect.); Rotavirus A Not Detected (Not Detect.); Salmonella Not Detected (Not Detect.); Sapovirus Not Detected (Not Detect.); Shigella sp./EIEC Not Detected (Not Detect.); Vibrio Not Detected (Not Detect.); Vibrio Cholerae Not Detected (Not Detect.); Yersinia enterocolitica Not Detected (Not Detect.)
[2022-11-17 15:24] VITALS: BP 112/67; PULSE 87; TEMP 36.8; O2SAT 97
[2022-11-17 19:37] VITALS: BP 131/75; PULSE 88; RESP 16; TEMP 38.7; O2SAT 96
[2022-11-17 22:30] VITALS: TEMP 37.1
[2022-11-17 23:56] LABS: CDiff Gene PCR NEGATIVE (Negative)
[2022-11-18] MEDS: Piperacillin Sodium/Tazobactam 4.5 GM in 0.9 % Sodium Chloride 100 ML IV ×4 (02:24→20:55)
[2022-11-18 03:02] VITALS: BP 118/71; PULSE 72; RESP 14; TEMP 37.3; O2SAT 97
[2022-11-18 07:06] VITALS: BP 133/78; PULSE 86; RESP 20; TEMP 37.5; O2SAT 96
[2022-11-18] MEDS: 0.9 % Sodium Chloride Flush 3 ML SYRINGE IVFLUSH ×2 (08:38→19:18)
[2022-11-18] MEDS: Benzonatate 100 MG CAPSULE PO ×3 (08:38→20:55)
[2022-11-18] MEDS: Loperamide HCl 2 MG CAPSULE PO (10:22)
[2022-11-18] MEDS: Azithromycin 500 MG in 0.9 % Sodium Chloride 250 ML 125 MG IV (10:22)
--- NOTE | 2022-11-18 10:41 | HO.PM.IMPN ---
Subjective Subjective Date of Service: 11/18/22 Interval History: Seen and evaluated reporting cough Feels better overall but still spiking low grade fever and having diarrhea tested negative for CDiff On RA Physical Exam Vital Signs: Vital Signs: Last Vital Signs Temp 99.5 F 11/18/22 07:06 Pulse 86 11/18/22 07:06 Resp 20 11/18/22 07:06 BP 133/78 11/18/22 07:06 Pulse Ox 96 11/18/22 07:06 O2 Del Method Room Air 11/18/22 07:06 BMI result Body Mass Index 31.4 Const: Other: Constitutional : Awake, interactive, weak, not in distress Neck : Normal inspection, Supple Cardiovascular : RRR, no JVP, no lower extremity edema Respiratory : good bilateral air entry, basal crackles more on right side, on RA Gastrointestinal: soft, lax, Normal bowel sounds, Non tender Skin : Warm, Dry Neurological : Alert & oriented x3, No focal deficit Objective Data Active Medications Acetaminophen (Acetaminophen 325 Mg Tablet) 650 mg PO Q6H PRN PRN Reason: Pain, Mild (Pain Scale 1-3) Last Admin: 11/17/22 20:26 Dose: 650 mg Documented By: AMY Benzonatate (Benzonatate 100 Mg Capsule) 100 mg PO TID [facility] Last Admin: 11/18/22 08:38 Dose: 100 mg Documented By: DARRICK Piperacillin Sod/Tazobactam (Sod 4.5 gm/ Sodium Chloride) 100 mls @ 200 mls/hr IV Q6H [facility] Last Infusion: 11/18/22 09:16 Dose: 200 mls/hr Documented By: DARRICK Azithromycin 500 mg/ Sodium (Chloride) 250 mls @ 125 mls/hr IV Q24H [facility] Last Admin: 11/18/22 10:22 Dose: 125 mls/hr Documented By: DARRICK Loperamide HCl (Loperamide Hcl 2 Mg Capsule) 2 mg PO Q4H PRN PRN Reason: Diarrhea Last Admin: 11/18/22 10:22 Dose: 2 mg Documented By: DARRICK Ondansetron HCl (Ondansetron Hcl 4 Mg/2 Ml Vial) 4 mg IVPUSH Q8H PRN PRN Reason: Nausea and Vomiting Sodium Chloride (0.9 % Sodium Chloride Flush 3 Ml Syringe) 3 ml IVFLUSH QSHIFT [facility] Last Admin: 11/18/22 08:38 Dose: 3 ml Documented By: DARRICK Labs 11/17/22 05:27 11/17/22 05:27 Labs: Laboratory Results - last 24 hr 11/17/22 11/17/22 11/17/22 05:27 11:08 11:09 Total Bilirubin 0.3 Direct Bilirubin 0.2 AST 41 H ALT 44 H Alkaline Phosphatase 54 Total Protein 7.0 Albumin 3.2 L Stl C. cayetanensis PCR Not Detected Stool Rotavirus A PCR Not Detected Stl Adenov F 40/41 PCR Not Detected Stool Astrovirus (PCR) Not Detected Stool Campylobacter PCR Not Detected Stool Cryptosporidium PCR Not Detected Stl Sh Tox Pr E STEC PCR Not Detected Stool E coli O157 PCR Not applicable Stl Enterotoxigenic E PCR Not Detected Stool EPEC (PCR) Not Detected Stool EAEC (PCR) Not Detected Stl E. histolytica PCR Not Detected Stool Giardia Lamblia PCR Not Detected Stl P. shigelloides PCR Not Detected Stool Salmonella PCR Not Detected Stool Sapovirus (PCR) Not Detected Stl Shigella/EIEC PCR Not Detected St Y.enterocolitica PCR Not Detected Stool Vibrio (PCR) Not Detected Stl Vibrio cholerae PCR Not Detected Stl Norovirus GI/GII PCR Not Detected C. difficile Tox B Gene NEGATIVE Microbiology Microbiology Results: Microbiology 11/16/22 08:11 Blood Culture - Preliminary Blood - Venous No growth after 48 hours. 11/16/22 08:01 Blood Culture - Preliminary Blood - Venous No growth after 48 hours. Assessment and Plan (1) Transaminitis: Status: Acute (2) Hyponatremia: Status: Acute (3) Sepsis: Status: Acute (4) Diarrhea: Status: Acute Plan A previously healthy 32 years old lady who presents to the hospital with 1 weeks of SOB, fever and cough. Sepsis 2/2 community acquired pneumonia CXR, CT as reported negative tox screen negative blood cultures still spiking low grade fever Continue Zosyn along with Azithromycin Tylenol for fever Tessalon for cough Diarrhea negative for Cdiff likely 2/2 antibiotics, to use as needed imodium mild hyponatremia resolved Transaminitis likely related to sepsis, to repeat LFT DVT PPx early ambulation Patient needs overnight hospital stay for treatment of sepsis pending final blood cultures Time Spent With Patient Time: Total time managing care of this patient today ____ minutes. Quality Stroke Does the patient have a stroke diagnosis?: No VTE Prior VTE?: No VTE Risk Level:: Medical - low VTE Device Contraindication: Treatment Not Indicated VTE Drug Contraindication: Treatment Not Indicated
[2022-11-18 15:28] VITALS: BP 106/52; PULSE 89; RESP 16; TEMP 37.2; O2SAT 96
[2022-11-18 19:43] VITALS: BP 130/67; PULSE 94; RESP 16; TEMP 37; O2SAT 96
[2022-11-19 00:41] VITALS: BP 100/60; PULSE 84; RESP 18; TEMP 36.6; O2SAT 98
[2022-11-19] MEDS: Piperacillin Sodium/Tazobactam 4.5 GM in 0.9 % Sodium Chloride 100 ML IV ×2 (03:13→08:47)
[2022-11-19 07:28] VITALS: BP 108/65; PULSE 77; RESP 16; TEMP 36.2; O2SAT 96
[2022-11-19] MEDS: Benzonatate 100 MG CAPSULE PO (08:47)
[2022-11-19] MEDS: 0.9 % Sodium Chloride Flush 3 ML SYRINGE IVFLUSH (08:48)
--- NOTE | 2022-11-19 11:04 | P.DS_ITS ---
DS: Providers Provider Date of Service: 11/19/22 Date of admission: 11/16/22 12:05 Primary care physician: None Physician DS: Diagnosis Discharge Diagnosis (1) Transaminitis: Status: Acute (2) Hyponatremia: Status: Acute (3) Sepsis: Status: Acute (4) Diarrhea: Status: Acute (5) Pneumonia: Status: Acute DS: Summary Hospital Course Hospital Course: Admission note HPI A previously healthy 32 years old lady who presents to the hospital with 1 weeks of SOB, fever and cough. She reports complaining of headache at the beginning which worsened over the last few day associated with fever, chills, cough, nausea, diarrha and generalized weakness. denies chest pain, palpitations, LOC, rash, urinary s ymptoms. she tried Tylenol at home and thought she was improving before feeling really sick last 2 days. In ED found to be febrile, tachycardic with evidence of pneumonia on CXR. admitted for treatment. Hospital course The patient was admitted for treatment of sepsis secondary to right sided pneumonia based on lung images with no reported history of substance abuse. Treated with IV antibiotics of Zosyn and Azithromycin with good response as Legionella and Pneumonia markers still pending. Blood cultures remained negative. Fever resolved with no need of O2 supplement. To finish 1 more week of oral antibiotics at discharge. Continue Azithromycin and Augmentin for 1 more week Tessalon for cough Come back to the hospital for any worsening breathing or fever Time Spent with Patient Time attestation: Total time managing care of this patient today ____ minutes. Discharge coordination time: Greater than 30 minutes Quality: Safe Use of Opioids Does Pt have an Active Cancer Diagnosis on the Problem List?: No Quality: Stroke Does the patient have a stroke diagnosis?: No Physical Exam Vital Signs: Vital Signs: Last Vital Signs Temp 97.2 F 11/19/22 07:28 Pulse 77 11/19/22 07:28 Resp 16 11/19/22 07:28 BP 108/65 11/19/22 07:28 Pulse Ox 96 11/19/22 07:28 O2 Del Method Room Air 11/19/22 07:28 BMI result Body Mass Index 31.4 Const: Other: Constitutional : Awake, interactive, weak, not in distress Neck : Normal inspection, Supple Cardiovascular : RRR, no JVP, no lower extremity edema Respiratory : good bilateral air entry, fine crackles right lung base Gastrointestinal: soft, lax, Normal bowel sounds, Non tender Skin : Warm, Dry Neurological : Alert & oriented x3, No focal deficit DS: Data Data Completed and Pending Labs on day of discharge: Preliminary micro results at discharge 11/16/22 08:11 Blood Culture - Preliminary Blood - Venous No growth after 48 hours. 11/16/22 08:01 Blood Culture - Preliminary Blood - Venous No growth after 48 hours. Imaging Chest x-ray: Radiologist's impression: ITS Impressions Abdomen/Pelvis CT 11/16/22 09:12 IMPRESSION: Large right lower lobe pneumonia and probable small pneumonia in the left lower lobe. Very small right pleural effusion. No acute abdominal findings. Fleischner guidelines were followed. Chest CTA 11/16/22 09:12 IMPRESSION: 1. No evidence of pulmonary embolism. 2. Multifocal airspace disease with dense consolidation in the right lower lobe, most likely pneumonia. VTE: negative. Discharge Plan Discharge Anticipated Discharge Date/Time: 11/19/22 11:00 Patient Disposition: Home, Self-Care Discharge Diagnosis: Pneumonia Referrals: Physician,None [Primary Care Provider] - 1 Week Discharge Medications: New benzonatate 100 mg Capsule 100 mg PO TID Qty: 20 0RF azithromycin 500 mg tablet 500 mg PO DAILY 7 Days Qty: 7 0RF amoxicillin-pot clavulanate 875-125 mg tablet 1 tab PO BID Qty: 14 0RF Continued desogestrel-ethinyl estradiol [Apri] 0.15-0.03 mg tablet 1 tab PO DAILY Discharge Orders: Discharge Order (Routine); Ordered 11/19/22 Ordered By: Robert Rao Diet: Advance to usual diet Activity on Discharge: As tolerated Stand Alone Forms: Patient Portal Discharge page Care Plan Goals: Read below Health Concerns: Read below Plan of Treatment: Read below Assessment: Treated for pneumonia with IV antibiotics with good response. Blood cultures remained negative. Continue Azithromycin and Augmentin for 1 more week Tessalon for cough Come back to the hospital for any worsening breathing or fever
--- NOTE | 2022-11-19 11:12 | MHC.CM.PN ---
DP: PT HAS BEEN MEDICALLY CLEARED FOR DC HOME, NO SERVICES. RN AWARE. [facility] BOOKED FOR 11:45 AM
[2022-11-21 17:18] LABS: Strep Pneumo Ag urine Not Detected (Not Detected)
== END 2022-11-19 11:28 | disposition home or self-care (01) | DRG 871 ==
LOC: HO.ED 10:51 → HO.EDOVER 12:19 → HO.S3 12:50
PROVIDERS: Admitting Provider Student in an Organized Health Care Education/Training Program; Emergency Provider Emergency Medicine Emergency Medical Services; Visit Provider Student in an Organized Health Care Education/Training Program
DX: A41.9 Sepsis, unspecified organism (principal); J18.9 Pneumonia, unspecified organism; E87.1 Hypo-osmolality and hyponatremia; R19.7 Diarrhea, unspecified; Z20.822 Contact with and (suspected) exposure to COVID-19; Z79.3 Long term (current) use of hormonal contraceptives
CPT/HCPCS: 36415; 71275; 74177; 80048; 80053; 80076; 80307; 81001; 81003; 83605; 83690; 84702; 85025; 85027; 85610; 85730; 87040; 87449; 87493; 87502; 87507; 87635; 87899; 93005; 99285; J0456; J0696; J1885; J2405; J2543; Q9967

== ENCOUNTER → 2022-11-16 12:05 | Outpatient (BNV) | payer SELFPAY | PROVIDERS: Admitting Provider Student in an Organized Health Care Education/Training Program; Emergency Provider Emergency Medicine Emergency Medical Services; Visit Provider Student in an Organized Health Care Education/Training Program | DX: A41.9 Sepsis, unspecified organism (principal); R74.01 Elevation of levels of liver transaminase levels; E87.1 Hypo-osmolality and hyponatremia; R19.7 Diarrhea, unspecified; J18.9 Pneumonia, unspecified organism | CPT/HCPCS: 99223; 99233; 99239 ==

== ENCOUNTER 2023-06-04 18:58 | Emergency (ER) | payer MEDICAID, OTHER, SELFPAY ==
[2023-06-04 19:46] VITALS: BP 107/81; PULSE 84; RESP 18; TEMP 37.7; O2SAT 99; BMI 32.3
--- NOTE | 2023-06-04 19:53 | ED_ITS ---
HPI - General Adult General Chief complaint: Abdominal Pain Stated complaint: abd pain, weakness Time Seen by Provider: 06/04/23 22:57 Source: patient, RN notes reviewed and old records reviewed Mode of arrival: ambulatory Limitations: no limitations History of Present Illness HPI narrative: [age] female who denies any past medical history presents for evaluation of abdominal pain, diarrhea, chills. She reports her symptoms started 1 week ago but worsened last night She reports nonbloody diarrhea but denies nausea and vomiting Denies any known sick contacts She reports generalized body aches Denies any recent travel She rates her discomfort as 8/10. Related Data Home Medications Medication Instructions Recorded Confirmed desogestrel 0.15 mg-ethinyl 1 tab PO DAILY 11/16/22 11/16/22 estradiol 0.03 mg tablet (Apri) Previous Rx's Medication Instructions Recorded amoxicillin 875 mg-potassium 1 tab PO BID #14 tabs 11/19/22 clavulanate 125 mg tablet azithromycin 500 mg tablet 500 mg PO DAILY 7 days #7 tabs 11/19/22 benzonatate 100 mg capsule 100 mg PO TID #20 caps 11/19/22 nitrofurantoin 100 mg PO Q12H 5 days #10 caps 06/04/23 monohydrate/macrocrystals 100 mg capsule (Macrobid) Allergies Allergy/AdvReac Type Severity Reaction Status Date / Time No Known Allergies Allergy Verified 06/04/23 19:51 Review of Systems 2 Constitutional: Constitutional: Reports body ache(s), Reports chills, Reports fever(s) and Denies headache(s) ENT: Denies headache(s) Cardiovascular: Cardiovascular: Denies chest pain and Denies dyspnea Respiratory: Respiratory: Reports cough and Denies dyspnea Gastrointestinal: Gastrointestinal: Reports abdominal pain, Denies diarrhea, Reports loose stools, Denies nausea and Denies vomiting Genitourinary: Genitourinary: Reports dysuria Musculoskeletal: Musculoskeletal: Reports back pain Integumentary/Breasts: Skin/Breast: Denies rash Neurologic: Denies headache(s) [facility] Social History Social History Household Members: Family Household Members Other:: Niece Housing: Apartment Do you presently have visiting nurse or other home services: No Alcohol intake: never Patient Tobacco Use Status: Never used Tobacco Advance Directives: No Advance Directives Information Provided: No service: No Physical Exam ED Vital Signs: Vital Signs - 24 hr 06/04/23 19:46 06/04/23 22:56 Temperature 99.9 F 98.9 F Pulse Rate 84 83 Respiratory Rate 18 16 Blood Pressure 107/81 123/71 Pulse Oximetry 99 99 Oxygen Delivery Method Room Air Room Air BMI result Body Mass Index 32.3 Const General: healthy appearing, comfortable, no acute distress, alert and awake Nutritional Appearance: well nourished Orientation/consciousness: patient oriented x3 HENMT Head: Yes normocephalic and Yes atraumatic Eyes Eyelids: Yes eyelids normal Conjunctivae: conjunctivae normal Sclerae: sclerae normal Corneas: corneas normal Pupils: Equal, round and reactive pupils present EOM: EOMs intact bilaterally Neck Neck: Yes full ROM Resp Effort & Inspection: normal respiratory effort, able to speak in complete sentences, no audible wheezes and not labored Auscultation: clear to auscultation bilaterally Cardio Rate: regular rate Rhythm: regular rhythm GI Inspection: No distended Palpation (GI): Soft to palpation, not firm, nontender, no guarding and not rigid Skin General skin exam: no rashes or lesions noted and elasticity normal Neuro General: patient oriented x3 Cranial nerves: Yes Equal, round and reactive pupils present and Yes Bilaterally intact EOM present Cognition (Neuro): normal cognition Extrem Other: Moving all extremities well without any obvious deformities Course Course Course Narrative: RME: 33-year-old female presents ED for generalized abdominal pain, body aches, and diarrhea. SARs labs ordered. Medications Administered Discontinued Medications Generic Name Dose Route Start Last Admin Trade Name Freq PRN Reason Stop Dose Admin Ketorolac Tromethamine 30 mg 06/04/23 23:07 06/04/23 23:22 Ketorolac Tromethamine 30 Mg/Ml Vial IM 06/04/23 23:08 30 mg ONCE ONE Administration Medical Decision Making Medical Decision Making MDM Narrative: 33-year-old female presents for evaluation of flu-like symptoms. She had a broad workup that included a CBC significant for a leukopenia likely related to the virus, no significant chemistry abnormalities. Her physical exam is reassuring. She ended up passing positive for the flu and also has a UA consistent with UTI. She reports flu-like symptoms for 1 week so she is not within the window for Tamiflu treatment. Will treat her UTI with Macrobid b.i.d. x5 days and symptomatic care. There was no evidence of sepsis the patient's vital signs are stable Differential Diagnosis Differential Diagnoses: The differential diagnosis associated with the presentation includes Influenza UTI Viral syndrome Upper respiratory infection Lab Data MDM Lab Attestation statement: I reviewed the patient's lab results. See above 06/04/23 20:12 06/04/23 20:12 Labs: Lab Results 06/04/23 06/04/23 Range/Units 20:12 23:01 WBC 4.0 L (4.8-10.8) X10*3/uL RBC 4.50 (4.20-5.50) X10*6/uL Hgb 12.6 (12.0-16.0) g/dl Hct 38.6 (37.0-47.0) % MCV 85.8 (80.0-98.0) fL MCH 28.0 (27.0-33.0) pg MCHC 32.6 (31.0-35.0) g/dl RDW 12.7 (11.0-16.0) % Plt Count 213 (160-400) X10*3/uL MPV 10.7 (9.4-12.3) fL Immature Gran % (Auto) 0.2 (0.0-0.4) % Neut % (Auto) 27.0 L (45-73) % Lymph % (Auto) 57.4 H (20-40) % [place] % (Auto) 10.0 (2-11) % Eos % (Auto) 5.2 H (0-4) % Baso % (Auto) 0.2 (0-2) % Lymph # (Auto) 2.3 (1.2-4.9) X10*3/uL [place] # (Auto) 0.4 (0.1-1.2) X10*3/uL Eos # (Auto) 0.2 (0.0-0.4) X10*3/uL Baso # (Auto) 0.0 (0.0-0.2) X10*3/uL Abs Immat Gran (auto) 0.01 (0.00-0.03) X10*3/uL Absolute Neuts (auto) 1.1 L (2.0-8.3) x10*3/uL Absolute Nucleated RBC 0.000 (0.0-0.012) X10*3/uL Nucleated RBC % (auto) 0.0 (0.0-0.2) /100WBC PT 11.4 D (11.1-13.3) SEC INR 0.9 (0.9-1.1) APTT 19.7 L (26.0-36.8) SEC Sodium 142 (135-145) mmol/L Potassium 4.1 (3.3-5.1) mmol/L Chloride 107 (96-108) mmol/L Carbon Dioxide 27 (22-29) mmol/L Anion Gap 12 (12-20) BUN 8 L (9-16) mg/dL Creatinine 0.87 (0.5-1.4) mg/dL Estim Creat Clear Calc 98.9 Estimated GFR > 60 Random Glucose 89 (60-115) mg/dL Calcium 9.1 (8.4-10.2) mg/dL Total Bilirubin 0.2 (0.0-1.0) mg/dL AST 26 (5-31) U/L ALT 24 (0-31) U/L Alkaline Phosphatase 41 (39-117) U/L Total Protein 7.2 (6.5-8.0) g/dL Albumin 3.7 (3.5-5.0) g/dL Lipase 22 (8-78) U/L Beta HCG, Quant < 2 mIU/mL Urine Color Dark Yellow Urine Appearance Turbid Urine pH 6.5 (5.0-9.0) Ur Specific [place] 1.025 (1.005-1.025) Urine Protein 30 (1+) H (Neg-Trace) mg/dL Urine Glucose (UA) Negative (Negative) mg/dL Urine Ketones Trace (Negative) mg/dL Urine Blood Small (1+) H (Negative) Urine Nitrite Negative (Negative) Ur Leukocyte Esterase Large (3+) H (Negative) Urine RBC 6-10 H (0-2) /HPF Urine WBC >50 H (0-5) /HPF Ur Squamous Epith Cells >20 (0-2) /HPF Urine Bacteria 4+ (None Seen) Hyaline Casts 3-5 (0-2) /LPF Influenza Type A (PCR) POSITIVE A (Negative) Influenza Type B (PCR) NEGATIVE (Negative) RSV RNA Qual (PCR) NEGATIVE (Negative) SARS-CoV-2 RNA (RT-PCR) NEGATIVE (Negative) Discharge Plan Discharge Clinical Impression: Influenza A, UTI (urinary tract infection) Patient Disposition: Home, Self-Care Instructions: Influenza (ED) Additional Instructions: You tested positive for the flu. You do have a urinary tract infection Take the Macrobid twice daily for 5 days The remainder of your workup was reassuring. Use Motrin Tylenol for fevers and body aches. You may use [id number] Imodium to help with diarrhea Drink lots of fluids Follow-up your primary doctor Prescriptions: New nitrofurantoin monohyd/m-cryst [Macrobid] 100 mg capsule 100 mg PO Q12H 5 Days Qty: 10 0RF Rx Instructions: must administer with a meal/food No Action desogestrel-ethinyl estradiol [Apri] 0.15-0.03 mg tablet 1 tab PO DAILY benzonatate 100 mg Capsule 100 mg PO TID Qty: 20 0RF azithromycin 500 mg tablet 500 mg PO DAILY 7 Days Qty: 7 0RF amoxicillin-pot clavulanate 875-125 mg tablet 1 tab PO BID Qty: 14 0RF Stand Alone Forms: Work/School Release Interventions: ED Discharge Assessment Last Done: 06/04/23 23:51 Discharge Date/Time: 06/04/23 23:52
[2023-06-04 20:17] LABS: MANUAL DIFF FLAG NO
[2023-06-04 20:19] LABS: Basophils Percent Auto 0.2 % (0-2); Eosinophils Absolute Auto 0.2 X10*3/uL (0.0-0.4); Eosinophils Percent Auto 5.2 % (0-4); Hematocrit 38.6 % (37.0-47.0); Hemoglobin 12.6 g/dl (12.0-16.0); Imm Gran Abs Auto 0.01 X10*3/uL (0.00-0.03); Imm Gran Pct Auto 0.2 % (0.0-0.4); Lymphocytes Absolute Auto 2.3 X10*3/uL (1.2-4.9); Lymphocytes Percent Auto 57.4 % (20-40); Mean Corpuscular HGB Conc 32.6 g/dl (31.0-35.0); Mean Corpuscular Volume 85.8 fL (80.0-98.0); Mean Platelet Volume 10.7 fL (9.4-12.3); Monocytes Absolute Auto 0.4 X10*3/uL (0.1-1.2); Neutrophils Absolute Auto 1.1 x10*3/uL (2.0-8.3); Platelet Count 213 X10*3/uL (160-400); Red Cell Distribution Width 12.7 % (11.0-16.0)
[2023-06-04 20:28] LABS: INTERNATIONAL NORM RATIO 0.9 (0.9-1.1); Prothrombin Time 11.4 SEC (11.1-13.3)
[2023-06-04 20:40] LABS: Alanine Aminotransferase 24 U/L (0-31); Albumin Level 3.7 g/dL (3.5-5.0); Alkaline Phosphatase 41 U/L (39-117); Anion Gap 12 (12-20); Aspartate Amino Transferase 26 U/L (5-31); Bilirubin Total 0.2 mg/dL (0.0-1.0); Blood Urea Nitrogen 8 mg/dL (9-16); Calcium 9.1 mg/dL (8.4-10.2); Carbon Dioxide 27 mmol/L (22-29); Chloride 107 mmol/L (96-108); Creatinine Clr Calc Pharmacy 98.9; Estimated Glomerular Filt Rate > 60; Glucose Random 89 mg/dL (60-115); Lipase 22 U/L (8-78); Potassium 4.1 mmol/L (3.3-5.1); Sodium 142 mmol/L (135-145); Total Protein 7.2 g/dL (6.5-8.0)
[2023-06-04 20:42] LABS: HCG Quantitative < 2 mIU/mL
[2023-06-04 20:55] LABS: Influenza A PCR POSITIVE (Negative); Influenza B PCR NEGATIVE (Negative); Resp Syncy Virus RNA Qual PCR NEGATIVE (Negative); SARS COV2 PCR INHOUSE NEGATIVE (Negative)
[2023-06-04 20:56] LABS: Partial Thromboplastin Time 19.7 SEC (26.0-36.8)
[2023-06-04 22:56] VITALS: BP 123/71; PULSE 83; RESP 16; TEMP 37.2; O2SAT 99
[2023-06-04 23:07] LABS: Appearance Urine Turbid; Color Urine Dark Yellow; Glucose Urine UA Negative (Negative); Leukocyte Esterase Urine Large (3+) (Negative); Nitrite Urine Negative (Negative); PH 6.5 (5.0-9.0); Specific Gravity - Urine 1.025 (1.005-1.025); UMIC TRIGGER UACC YES; Urine Blood Small (1+) (Negative); Urine Ketones Trace mg/dL (Negative); Urine Protein 30 (1+) mg/dL (Neg-Trace)
[2023-06-04 23:17] LABS: Bacteria Urine 4+ (None Seen); Squamous Epithelial Cell Urine >20 /HPF (0-2); UACC Culture Trigger YES; WBC Urine >50 /HPF (0-5)
[2023-06-04] MEDS: Ketorolac Tromethamine 30 MG/ML VIAL IM (23:22)
== END 2023-06-04 23:52 | disposition home or self-care (01) ==
PROVIDERS: Physician Assistant; Emergency Provider Emergency Medicine
DX: J10.1 Influenza due to other identified influenza virus with other respiratory manifestations (principal); N39.0 Urinary tract infection, site not specified; Z11.52 Encounter for screening for COVID-19; Z20.822 Contact with and (suspected) exposure to COVID-19; Z79.899 Other long term (current) drug therapy
CPT/HCPCS: 0241U; 80053; 81001; 83690; 84702; 85025; 85610; 85730; 87086; 87147; 96372; 99284; J1885

== ENCOUNTER 2023-10-29 14:20 | Emergency (ER) | payer MEDICAID, OTHER, SELFPAY ==
--- NOTE | ~2023-10-29 | CT_ITS ---
EXAMINATION: CT HEAD WITHOUT CONTRAST CLINICAL INFORMATION: Near syncope. Weakness. COMPARISON: None. TECHNIQUE: Contiguous axial imaging was performed from the skull base to vertex without intravenous administration of contrast. Coronal and sagittal reformatted images are performed at the CT scanner. [This CT examination was performed using dose optimization techniques as appropriate, variously including the following: *Automated exposure control *Adjustment of mA and/or kV according to patient size (this includes techniques or standardized protocols for targeted exams where dose is matched to indication/reason for exam; i.e. extremities or head) *Use of iterative reconstruction technique] DLP: 600 mGy-cm. FINDINGS: There is no evidence of acute intracranial hemorrhage or territorial infarction. No abnormal mass-effect or midline shift is seen. [place] to white matter differentiation is well preserved. No extra-axial fluid collections are identified. The ventricles are normal in size. There is no abnormal attenuation within the brain parenchyma. There is no osseous abnormality. The mastoid air cells and visualized portions of the paranasal sinuses are well-aerated. CT/CT head/brain wo IV con IMPRESSION: No acute intracranial pathology.
--- NOTE | ~2023-10-29 | XR_ITS ---
EXAMINATION: XR CHEST CLINICAL INFORMATION: Weakness COMPARISON: Chest CT of 11/16/2022 TECHNIQUE: 2 views of the chest were obtained. FINDINGS: Cardiomediastinal silhouette is normal. No abnormal tracheal deviation. The lungs are symmetrically adequately expanded. No focal consolidation, changes of congestion, pleural effusions or pneumothorax are seen. The visualized upper abdomen is unremarkable. Regional skeleton is intact. XR/XR chest 2V IMPRESSION: No radiographic evidence of pneumonia. No acute pulmonary process.
[2023-10-29 15:11] VITALS: BP 133/83; PULSE 71; RESP 18; TEMP 36.8; O2SAT 100; BMI 33.2
--- NOTE | 2023-10-29 15:16 | ECG_ITS ---
Test Reason : near syncopee Blood Pressure : / mmHG Vent. Rate : 071 BPM Atrial Rate : 071 BPM P-R Int : 140 ms QRS Dur : 072 ms QT Int : 352 ms P-R-T Axes : 036 043 029 degrees QTc Int : 382 ms Normal sinus rhythm with sinus arrhythmia Normal ECG When compared with ECG of 16-NOV-2022 07:53, Vent. rate has decreased BY 40 BPM Criteria for Septal infarct are no longer Present Referred By: Maricel Montaño Electronically Signed By:MICHAEL MCCAIN MD
--- NOTE | 2023-10-29 15:17 | ED.GENADULT ---
HPI - General Adult General Chief complaint: General Medical Stated complaint: Weakness Time Seen by Provider: 10/29/23 21:50 Source: patient Mode of arrival: ambulatory Limitations: no limitations History of Present Illness ED Provider: DR. Gomez HPI narrative: Patient with on and off dizziness for one week, feels the room spinning. Denies recent head trauma, uri or ear pain Onset (ago): week(s) Severity: mild Pain Consistency: intermittent Related Data Home Medications ?Medication ?Instructions ?Recorded ?Confirmed desogestrel 0.15 mg-ethinyl 1 tab PO DAILY 11/16/22 11/16/22 estradiol 0.03 mg tablet (Apri) Previous Rx's ?Medication ?Instructions ?Recorded amoxicillin 875 mg-potassium 1 tab PO BID #14 tabs 11/19/22 clavulanate 125 mg tablet azithromycin 500 mg tablet 500 mg PO DAILY 7 days #7 tabs 11/19/22 benzonatate 100 mg capsule 100 mg PO TID #20 caps 11/19/22 nitrofurantoin 100 mg PO Q12H 5 days #10 caps 06/04/23 monohydrate/macrocrystals 100 mg capsule (Macrobid) meclizine 25 mg tablet 25 mg PO TID PRN dizziness #20 tabs 10/29/23 Allergies Allergy/AdvReac Type Severity Reaction Status Date / Time No Known Allergies Allergy Verified 10/29/23 15:13 Review of Systems Review of Systems: Yes all other systems are reviewed and are negative Neurologic: Denies Sensory deficit (Neuro) PMFSH Social History Social History Household Members: Family Household Members Other:: Niece Housing: Apartment Do you presently have visiting nurse or other home services: No Alcohol intake: never Patient Tobacco Use Status: Never used Tobacco Advance Directives: No Advance Directives Information Provided: No Do you have a plan to hurt others: No Plan service: No Physical Exam ED Vital Signs: Vital Signs - 24 hr 10/29/23 15:11 10/29/23 20:12 10/29/23 22:01 Temperature 98.3 F 98.2 F 98.7 F Pulse Rate 71 70 87 Respiratory Rate 18 18 19 Blood Pressure 133/83 136/82 114/92 H Pulse Oximetry 100 99 100 Oxygen Delivery Method Room Air Room Air Room Air BMI result Body Mass Index 33.2 Const General: healthy appearing Nutritional Appearance: average body habitus Orientation/consciousness: oriented to person and patient oriented x3 Limitations: no limitations HENMT Head: Yes normal to inspection Ears: external ears normal General nose exam: Normal external nose present Mouth: Normal oral and palatal mucosa present and oropharynx normal Throat: Yes posterior oropharynx normal Eyes General: appearance normal, both eyes and all related structures Neck Neck: Yes normal visual inspection Chest Chest palpation & inspection: normal inspection of the chest Resp Auscultation: clear to auscultation bilaterally Cardio Jugular venous distension: no JVD Rate: regular rate Rhythm: regular rhythm Heart sounds: S1 normal heart sound present and S2 normal heart sound present GI Inspection: Yes normal to inspection Palpation (GI): Soft to palpation, nontender and No hepatosplenomegaly present Auscultation: normal bowel sounds General: Yes no CVA tenderness Back/Spine/Pelvis Back: no CVA tenderness Skin General skin exam: no rashes or lesions noted Neuro Other: patient with positive [place] with head movement General: oriented to person and patient oriented x3 Cranial nerves: Yes CN's II-XII intact bilaterally Motor exam (neuro): 5/5 motor strength present throughout Sensory Exam: No Sensory deficit (Neuro) Extrem General: Yes normal to inspection Psych Appearance: grossly normal Course Course Course Narrative: This is a Rapid Medical Examination (RME) performed by Steve Montaño PA-C in triage. Full HPI, ROS, assessment and treatment plan per primary provider in the Main ED. 33 yo female here for eval of near syncope. reports one episode 1 wk ago and another last night. reports feels like the room is spinning. denies chest pain, palpitations, sob, [place]. no head trauma/ injury. no hx of same. + exam nonfocal. ambulating w/ steady gait. strength 5/5 intact. Plan: labs, ekg, cxr, head ct Reevaluation(s) Reevaluation #1: patient with normal labs, head CT, EKG, she has vertigo with barrone maneuver will treat with meclizine Medical Decision Making Differential Diagnosis Differential Diagnoses: The differential diagnosis associated with the presentation includes (CVA, brain tumor, vertigo, anemia, cardiac arrythmia) Admission/Observation Consideration of admission/observation: Escalation of care including admission/observation considered (upon arrival patient was considered for admission) Lab Data 10/29/23 16:09 10/29/23 16:09 Labs: Lab Results 10/29/23 10/29/23 Range/Units 16:05 16:09 WBC 7.5 (4.8-10.8) X10*3/uL RBC 4.41 (4.20-5.50) X10*6/uL Hgb 12.3 (12.0-16.0) g/dl Hct 37.4 (37.0-47.0) % MCV 84.8 (80.0-98.0) fL MCH 27.9 (27.0-33.0) pg MCHC 32.9 (31.0-35.0) g/dl RDW 13.7 (11.0-16.0) % Plt Count 238 (160-400) X10*3/uL MPV 10.6 (9.4-12.3) fL Immature Gran % (Auto) 0.3 (0.0-0.4) % Neut % (Auto) 54.6 (45-73) % Lymph % (Auto) 35.6 (20-40) % [place] % (Auto) 5.1 (2-11) % Eos % (Auto) 4.0 (0-4) % Baso % (Auto) 0.4 (0-2) % Lymph # (Auto) 2.7 (1.2-4.9) X10*3/uL [place] # (Auto) 0.4 (0.1-1.2) X10*3/uL Eos # (Auto) 0.3 (0.0-0.4) X10*3/uL Baso # (Auto) 0.0 (0.0-0.2) X10*3/uL Abs Immat Gran (auto) 0.02 (0.00-0.03) X10*3/uL Absolute Neuts (auto) 4.1 (2.0-8.3) x10*3/uL Absolute Nucleated RBC 0.000 (0.0-0.012) X10*3/uL Nucleated RBC % (auto) 0.0 (0.0-0.2) /100WBC PT 12.2 (11.1-13.3) SEC INR 1.0 (0.9-1.1) Sodium 140 (135-145) mmol/L Potassium 3.9 (3.3-5.1) mmol/L Chloride 105 (96-108) mmol/L Carbon Dioxide 23 (22-29) mmol/L Anion Gap 16 (12-20) BUN 11 (9-16) mg/dL Creatinine 0.98 (0.5-1.4) mg/dL Estim Creat Clear Calc 89.1 Estimated GFR > 60 Random Glucose 87 (60-115) mg/dL Calcium 9.7 D (8.4-10.2) mg/dL Magnesium 2.3 (1.6-2.6) mg/dL Total Bilirubin 0.3 (0.0-1.0) mg/dL AST 29 (5-31) U/L ALT 33 H (0-31) U/L Alkaline Phosphatase 48 (39-117) U/L Troponin I High Sens < 2.7 (<3.5-17.0) ng/L Total Protein 7.7 (6.5-8.0) g/dL Albumin 4.1 (3.5-5.0) g/dL Beta HCG, Quant < 2 mIU/mL Urine Color Yellow Urine Appearance Turbid Urine pH 7.5 (5.0-9.0) Ur Specific [place] 1.025 (1.005-1.025) Urine Protein Trace (Neg-Trace) mg/dL Urine Glucose (UA) Negative (Negative) mg/dL Urine Ketones Negative (Negative) mg/dL Urine Blood Negative (Negative) Urine Nitrite Negative (Negative) Ur Leukocyte Esterase Moderate (2+) H (Negative) Urine RBC 0-2 (0-2) /HPF Urine WBC >50 H (0-5) /HPF Ur Squamous Epith Cells >20 (0-2) /HPF Urine Bacteria 4+ (None Seen) Hyaline Casts 0-2 (0-2) /LPF Influenza Type A (PCR) NEGATIVE (Negative) Influenza Type B (PCR) NEGATIVE (Negative) RSV RNA Qual (PCR) NEGATIVE (Negative) SARS-CoV-2 RNA (RT-PCR) NEGATIVE (Negative) Independent Interpretation I performed an independent interpretation of an: EKG (sinus [address] or twave changes) and CT Scan (CT brain no mass or bleed) Tests considered The following testing was considered but not selected: MRI of brain considered but patient is nonfocal Prescription Management I considered prescription management with: Antibiotic (no evidence of bacterial infection) Discharge Plan Discharge Clinical Impression: Vertigo Patient Disposition: Home, Self-Care Instructions: Vertigo (ED) Prescriptions: New meclizine 25 mg tablet 25 mg PO TID PRN (Reason: dizziness) Qty: 20 0RF No Action desogestrel-ethinyl estradiol [Apri] 0.15-0.03 mg tablet 1 tab PO DAILY benzonatate 100 mg Capsule 100 mg PO TID Qty: 20 0RF azithromycin 500 mg tablet 500 mg PO DAILY 7 Days Qty: 7 0RF amoxicillin-pot clavulanate 875-125 mg tablet 1 tab PO BID Qty: 14 0RF nitrofurantoin monohyd/m-cryst [Macrobid] 100 mg capsule 100 mg PO Q12H 5 Days Qty: 10 0RF Rx Instructions: must administer with a meal/food Referrals: Physician,Unknown J [Primary Care Provider] - 5 days Print Language: Yi
[2023-10-29 16:14] LABS: MANUAL DIFF FLAG NO
[2023-10-29 16:16] LABS: Basophils Percent Auto 0.4 % (0-2); Eosinophils Absolute Auto 0.3 X10*3/uL (0.0-0.4); Hematocrit 37.4 % (37.0-47.0); Hemoglobin 12.3 g/dl (12.0-16.0); Imm Gran Abs Auto 0.02 X10*3/uL (0.00-0.03); Imm Gran Pct Auto 0.3 % (0.0-0.4); Lymphocytes Absolute Auto 2.7 X10*3/uL (1.2-4.9); Lymphocytes Percent Auto 35.6 % (20-40); Mean Corpuscular HGB Conc 32.9 g/dl (31.0-35.0); Mean Corpuscular Hemoglobin 27.9 pg (27.0-33.0); Mean Corpuscular Volume 84.8 fL (80.0-98.0); Mean Platelet Volume 10.6 fL (9.4-12.3); Monocytes Absolute Auto 0.4 X10*3/uL (0.1-1.2); Monocytes Percent Auto 5.1 % (2-11); Neutrophils Absolute Auto 4.1 x10*3/uL (2.0-8.3); Neutrophils Percent Auto 54.6 % (45-73); Platelet Count 238 X10*3/uL (160-400); Red Blood Count 4.41 X10*6/uL (4.20-5.50); Red Cell Distribution Width 13.7 % (11.0-16.0); White Blood Count 7.5 X10*3/uL (4.8-10.8)
[2023-10-29 16:18] LABS: Appearance Urine Turbid; Color Urine Yellow; Glucose Urine UA Negative (Negative); Leukocyte Esterase Urine Moderate (2+) (Negative); Nitrite Urine Negative (Negative); PH 7.5 (5.0-9.0); Specific Gravity - Urine 1.025 (1.005-1.025); UMIC TRIGGER UACC YES; Urine Blood Negative (Negative); Urine Ketones Negative (Negative); Urine Protein Trace mg/dL (Neg-Trace)
[2023-10-29 16:27] LABS: Prothrombin Time 12.2 SEC (11.1-13.3)
[2023-10-29 16:38] LABS: Troponin-I High Sensitivity < 2.7 ng/L (<3.5-17.0)
[2023-10-29 16:39] LABS: Bacteria Urine 4+ (None Seen); Hyaline Casts Urine 0-2 /LPF (0-2); RBC Urine 0-2 /HPF (0-2); Squamous Epithelial Cell Urine >20 /HPF (0-2); UACC Culture Trigger YES; WBC Urine >50 /HPF (0-5)
[2023-10-29 16:55] LABS: Influenza A PCR NEGATIVE (Negative); Influenza B PCR NEGATIVE (Negative); Resp Syncy Virus RNA Qual PCR NEGATIVE (Negative); SARS COV2 PCR INHOUSE NEGATIVE (Negative)
[2023-10-29 20:12] VITALS: BP 136/82; PULSE 70; RESP 18; TEMP 36.8; O2SAT 99
[2023-10-29 21:15] LABS: Alanine Aminotransferase 33 U/L (0-31); Albumin Level 4.1 g/dL (3.5-5.0); Alkaline Phosphatase 48 U/L (39-117); Anion Gap 16 (12-20); Aspartate Amino Transferase 29 U/L (5-31); Bilirubin Total 0.3 mg/dL (0.0-1.0); Blood Urea Nitrogen 11 mg/dL (9-16); Calcium 9.7 mg/dL (8.4-10.2); Carbon Dioxide 23 mmol/L (22-29); Chloride 105 mmol/L (96-108); Creatinine Clr Calc Pharmacy 89.1; Estimated Glomerular Filt Rate > 60; Glucose Random 87 mg/dL (60-115); Magnesium 2.3 mg/dL (1.6-2.6); Potassium 3.9 mmol/L (3.3-5.1); Sodium 140 mmol/L (135-145); Total Protein 7.7 g/dL (6.5-8.0)
[2023-10-29 21:17] LABS: HCG Quantitative < 2 mIU/mL
[2023-10-29 22:01] VITALS: BP 114/92; PULSE 87; RESP 19; TEMP 37.1; O2SAT 100
[2023-10-29 22:12] VITALS: BP 114/92; PULSE 87; RESP 19; TEMP 37.1; O2SAT 100
== END 2023-10-29 22:13 | disposition home or self-care (01) ==
PROVIDERS: Physician Assistant Medical; Emergency Provider Emergency Medicine
DX: R42 Dizziness and giddiness (principal); R53.1 Weakness; R55 Syncope and collapse; Z03.818 Encounter for observation for suspected exposure to other biological agents ruled out
CPT/HCPCS: 0241U; 70450; 71046; 80053; 81001; 83735; 84484; 84702; 85025; 85610; 87086; 93005; 99284

== ENCOUNTER → 2023-10-29 15:16 | Outpatient (BNV) | payer MEDICAID, SELFPAY | PROVIDERS: Emergency Provider Emergency Medicine; Visit Provider Internal Medicine Cardiovascular Disease | DX: R55 Syncope and collapse (principal) | CPT/HCPCS: 93010 ==

== ENCOUNTER 2024-03-10 19:54 | Emergency (ER) | payer OTHER, SELFPAY ==
--- NOTE | ~2024-03-10 | XR_ITS ---
EXAMINATION: XR CHEST CLINICAL INFORMATION: cough COMPARISON: October 29, 2023 TECHNIQUE: Frontal view of the chest was obtained. FINDINGS: The lung volumes are low. The cardiomediastinal silhouette is within normal limits and stable. There is no focal lung consolidation or pleural effusions. The bony structures and the soft tissues are unremarkable. XR/XR chest 1V IMPRESSION: Low lung volumes. No acute cardiopulmonary process. Electronically signed by: Ambrosio Bird MD 03/11/2024 01:49 AM [facility]
--- NOTE | ~2024-03-10 | US_ITS ---
EXAMINATION: US ABDOMEN LIMITED CLINICAL INFORMATION: Pain.. COMPARISON: None available. TECHNIQUE: Real-time imaging of the right upper quadrant abdominal viscera. FINDINGS: PANCREAS: Visualized portions are unremarkable. LIVER: The liver is normal in size. The liver contour is normal. Parenchymal echogenicity is normal. No focal hepatic lesion. There is no intrahepatic biliary duct dilatation seen. GALLBLADDER: The gallbladder is physiologically distended without evidence of stones, sludge, polyps, wall thickening or pericholecystic fluid. COMMON BILE DUCT: Normal in caliber measuring 0.4 cm in diameter. RIGHT KIDNEY: No hydronephrosis. No renal calculi or focal parenchymal lesions. The kidney measures 10 cm in maximum dimension. FREE FLUID: None. US/US abdomen limited IMPRESSION: Unremarkable right upper quadrant ultrasound. Electronically signed by: Ambrosio Bird MD 03/11/2024 01:40 AM [facility]
[2024-03-10 20:01] VITALS: BP 113/70; PULSE 88; RESP 18; TEMP 37.5; O2SAT 100; BMI 32.1
--- NOTE | 2024-03-10 20:03 | ED.GENADULT ---
HPI - General Adult General Chief complaint: General Medical Stated complaint: headache/fever Time Seen by Provider: 03/10/24 23:59 Source: patient Limitations: no limitations History of Present Illness ED Provider: Leyla Marcial PA-C HPI narrative: 33-year-old otherwise healthy female presents with cough and cold symptoms x1 week. Associated productive cough, fever, generalized abdominal discomfort, headache and myalgias. Denies nausea vomiting diarrhea. Denies known sick contacts with similar symptoms. Patient states the last time she felt this way she had pneumonia. Related Data Home Medications ?Medication ?Instructions ?Recorded ?Confirmed desogestrel 0.15 mg-ethinyl 1 tab PO DAILY 11/16/22 11/16/22 estradiol 0.03 mg tablet (Apri) Previous Rx's ?Medication ?Instructions ?Recorded amoxicillin 875 mg-potassium 1 tab PO BID #14 tabs 11/19/22 clavulanate 125 mg tablet azithromycin 500 mg tablet 500 mg PO DAILY 7 days #7 tabs 11/19/22 benzonatate 100 mg capsule 100 mg PO TID #20 caps 11/19/22 nitrofurantoin 100 mg PO Q12H 5 days #10 caps 06/04/23 monohydrate/macrocrystals 100 mg capsule (Macrobid) meclizine 25 mg tablet 25 mg PO TID PRN dizziness #20 tabs 10/29/23 Allergies Allergy/AdvReac Type Severity Reaction Status Date / Time No Known Allergies Allergy Verified 03/10/24 20:02 Review of Systems Review of Systems: Yes all other systems are reviewed and are negative Constitutional: Constitutional: Reports fatigue, Reports fever(s) and Reports malaise Cardiovascular: Cardiovascular: Denies chest pain and Denies dyspnea Respiratory: Respiratory: Reports chest congestion, Reports cough and Denies dyspnea Gastrointestinal: Gastrointestinal: Reports abdominal pain, Denies diarrhea, Denies nausea and Denies vomiting Endocrine: Endocrine: Reports fatigue PMFSH Past Medical History Attestation statement: The following information was validated with the patient. Social History Social History Household Members: Family Household Members Other:: Niece Housing: Apartment Do you presently have visiting nurse or other home services: No Unable to assess alcohol history related to: Unknown Alcohol intake: never Patient Tobacco Use Status: Never used Tobacco Smoked in Last 30 Days: No Use of substances other than those prescribed or required for medical reasons: Unknown Advance Directives: No Advance Directives Information Provided: No Do you have a plan to hurt others: No Plan service: No Physical Exam ED Vital Signs: Vital Signs - 24 hr 03/10/24 20:01 03/10/24 22:34 03/10/24 23:59 Temperature 99.5 F 99.5 F 97.9 F Pulse Rate 88 66 68 Respiratory Rate 18 16 16 Blood Pressure 113/70 112/59 L 104/46 L Pulse Oximetry 100 100 99 Oxygen Delivery Method Room Air Room Air Room Air BMI result Body Mass Index 32.1 Const Other: Alert, appears older than stated age Orientation/consciousness: patient oriented x3 Resp Other: Nonlabored respirations Cardio Other: Normal peripheral perfusion GI Other: Abdomen is soft, nondistended, mild tenderness noted across the upper abdomen, no guarding Skin Other: Warm dry no rash Neuro General: patient oriented x3, gait normal, no focal motor deficits and CN's II-XI intact bilaterally Psych Other: Calm cooperative Course Course Course Narrative: RME, this is a rapid medical exam performed by Vipin Lane please refer to primary provider for complete H&P- 33-year-old female presents for evaluation of weakness, headaches, cough. Plan for viral swabs. Medications Administered Generic Name Dose Route Start Last Admin Trade Name Freq PRN Reason Stop Dose Admin Sodium Chloride 1,000 mls @ 999 mls/hr 03/11/24 01:00 03/11/24 01:00 Ns IV 03/11/24 02:00 999 mls/hr .Q1H1M AGGIE Administration Discontinued Medications Generic Name Dose Route Start Last Admin Trade Name Freq PRN Reason Stop Dose Admin Acetaminophen 975 mg 03/11/24 00:00 03/11/24 00:03 Acetaminophen 325 Mg Tablet PO 03/11/24 00:01 975 mg ONCE ONE Administration Ibuprofen 600 mg 03/11/24 00:00 03/11/24 00:03 Ibuprofen 600 Mg Tablet PO 03/11/24 00:01 600 mg ONCE ONE Administration Medical Decision Making Medical Decision Making [facility] Narrative: 33-year-old otherwise healthy female presents with cough and cold symptoms x1 week. Associated productive cough, fever, generalized abdominal discomfort, headache and myalgias. Denies nausea vomiting diarrhea. Denies known sick contacts with similar symptoms. Patient states the last time she felt this way she had pneumonia. No chronic issues to address History: Per patient I have considered the following differential diagnoses: Viral syndrome, pneumonia, biliary colic, cholecystitis, gastritis, meningitis, intracranial hemorrhage Plan: I am concerned for viral syndrome versus pneumonia. Screening labs were not obtained from triage. A viral panel alone was. We will add a chest x-ray and screening labs, including LFTs and a lipase.. Giving the patient IV fluid, ibuprofen and Tylenol. Given upper abdominal discomfort I am considering biliary versus gastric versus pancreatic etiology as cause for symptoms. However overall the exam was unremarkable. She also has no active GI symptoms. We will order an ultrasound of the right upper quadrant. Thought about meningitis, however there are no meningeal signs on exam. Thought about intracranial hemorrhage, however she is neurologically intact there was no preceding head trauma, she is not on a blood thinner. There was no indication for a CT scan. She has a headache from her underlying illness. I have independently reviewed the following tests: Labs: Viral panel negative, no leukocytosis, notty, LFTs and lipase are normal, she is not Chest x-ray: XR/XR chest 1V IMPRESSION: Low lung volumes. No acute cardiopulmonary process. Ultrasound right upper quadrant. wind energy technician relate that it was a normal study, the formal read is pending US/US abdomen limited IMPRESSION: Unremarkable right upper quadrant ultrasound. Lab Data 03/11/24 00:48 03/11/24 00:48 Labs: Lab Results 03/10/24 03/11/24 03/11/24 Range/Units 20:28 00:48 00:49 WBC 9.3 (4.8-10.8) X10*3/uL RBC 4.35 (4.20-5.50) X10*6/uL Hgb 12.3 (12.0-16.0) g/dl Hct 37.3 (37.0-47.0) % MCV 85.7 (80.0-98.0) fL MCH 28.3 (27.0-33.0) pg MCHC 33.0 (31.0-35.0) g/dl RDW 12.9 (11.0-16.0) % Plt Count 242 (160-400) X10*3/uL MPV 10.4 (9.4-12.3) fL Immature Gran % (Auto) 0.4 (0.0-0.4) % Neut % (Auto) 46.2 (45-73) % Lymph % (Auto) 42.8 H (20-40) % [place] % (Auto) 5.7 (2-11) % Eos % (Auto) 4.5 H (0-4) % Baso % (Auto) 0.4 (0-2) % Lymph # (Auto) 4.0 (1.2-4.9) X10*3/uL [place] # (Auto) 0.5 (0.1-1.2) X10*3/uL Eos # (Auto) 0.4 (0.0-0.4) X10*3/uL Baso # (Auto) 0.0 (0.0-0.2) X10*3/uL Abs Immat Gran (auto) 0.04 H (0.00-0.03) X10*3/uL Absolute Neuts (auto) 4.3 (2.0-8.3) x10*3/uL Absolute Nucleated RBC 0.000 (0.0-0.012) X10*3/uL Nucleated RBC % (auto) 0.0 (0.0-0.2) /100WBC Sodium 137 (135-145) mmol/L Potassium 4.2 (3.3-5.1) mmol/L Chloride 108 (96-108) mmol/L Carbon Dioxide 23 (22-29) mmol/L Anion Gap 10 L (12-20) BUN 9 (9-16) mg/dL Creatinine 0.88 (0.5-1.4) mg/dL Estim Creat Clear Calc 97.5 Estimated GFR > 60 Random Glucose 94 (60-115) mg/dL Calcium 8.8 D (8.4-10.2) mg/dL Magnesium 2.1 (1.6-2.6) mg/dL Total Bilirubin 0.4 (0.0-1.0) mg/dL AST 18 (5-31) U/L ALT 20 (0-31) U/L Alkaline Phosphatase 48 (39-117) U/L Total Protein 6.6 (6.5-8.0) g/dL Albumin 3.4 L (3.5-5.0) g/dL Lipase 25 (8-78) U/L Beta HCG, Quant < 2 mIU/mL Influenza Type A (PCR) NEGATIVE (Negative) Influenza Type B (PCR) NEGATIVE (Negative) RSV RNA Qual (PCR) NEGATIVE (Negative) SARS-CoV-2 RNA (RT-PCR) NEGATIVE (Negative) Discharge Plan Discharge Clinical Impression: Acute viral syndrome Patient Disposition: Home, Self-Care Instructions: Viral Syndrome (ED) Additional Instructions: All of your screening labs including a viral panel were normal. You were screened for influenza RSV and COVID. I do believe your symptoms are still secondary to underlying viral syndrome. See home care instructions. The chest x-ray was normal, you do not have pneumonia. The ultrasound of your abdomen was normal as well, there was no acute infection. Follow up with your primary care provider. You can use [id number] ibuprofen 600 mg taken every 6 hours with food, alternated with [id number]-mhuzgsk Tylenol 1000 mg taken every 8 hours, for headaches and generalized body aches or fevers. Prescriptions: No Action desogestrel-ethinyl estradiol [Apri] 0.15-0.03 mg tablet 1 tab PO DAILY benzonatate 100 mg Capsule 100 mg PO TID Qty: 20 0RF azithromycin 500 mg tablet 500 mg PO DAILY 7 Days Qty: 7 0RF amoxicillin-pot clavulanate 875-125 mg tablet 1 tab PO BID Qty: 14 0RF meclizine 25 mg tablet 25 mg PO TID PRN (Reason: dizziness) Qty: 20 0RF nitrofurantoin monohyd/m-cryst [Macrobid] 100 mg capsule 100 mg PO Q12H 5 Days Qty: 10 0RF Rx Instructions: must administer with a meal/food Stand Alone Forms: Work/School Release Print Language: Botswanan
[2024-03-10 21:16] LABS: Influenza A PCR NEGATIVE (Negative); Influenza B PCR NEGATIVE (Negative); Resp Syncy Virus RNA Qual PCR NEGATIVE (Negative); SARS COV2 PCR INHOUSE NEGATIVE (Negative)
[2024-03-10 22:34] VITALS: BP 112/59; PULSE 66; RESP 16; TEMP 37.5; O2SAT 100
[2024-03-10 23:59] VITALS: BP 104/46; PULSE 68; RESP 16; TEMP 36.6; O2SAT 99
[2024-03-11] MEDS: Acetaminophen 325 MG TABLET 975 MG PO (00:03)
[2024-03-11] MEDS: Ibuprofen 600 MG TABLET PO (00:03)
--- NOTE | 2024-03-11 00:07 | PC.NURSE ---
pt reports headaches x 1 week, has not taken any ibuprofen or tylenol for the pain .
[2024-03-11 00:53] LABS: MANUAL DIFF FLAG NO
[2024-03-11 00:57] LABS: Basophils Percent Auto 0.4 % (0-2); Eosinophils Absolute Auto 0.4 X10*3/uL (0.0-0.4); Eosinophils Percent Auto 4.5 % (0-4); Hematocrit 37.3 % (37.0-47.0); Hemoglobin 12.3 g/dl (12.0-16.0); Imm Gran Abs Auto 0.04 X10*3/uL (0.00-0.03); Imm Gran Pct Auto 0.4 % (0.0-0.4); Lymphocytes Percent Auto 42.8 % (20-40); Mean Corpuscular Hemoglobin 28.3 pg (27.0-33.0); Mean Corpuscular Volume 85.7 fL (80.0-98.0); Mean Platelet Volume 10.4 fL (9.4-12.3); Monocytes Absolute Auto 0.5 X10*3/uL (0.1-1.2); Monocytes Percent Auto 5.7 % (2-11); Neutrophils Absolute Auto 4.3 x10*3/uL (2.0-8.3); Neutrophils Percent Auto 46.2 % (45-73); Platelet Count 242 X10*3/uL (160-400); Red Blood Count 4.35 X10*6/uL (4.20-5.50); Red Cell Distribution Width 12.9 % (11.0-16.0); White Blood Count 9.3 X10*3/uL (4.8-10.8)
[2024-03-11] MEDS: 0.9 % Sodium Chloride 1,000 ML 999 ML IV (01:00)
[2024-03-11 01:19] LABS: Albumin Level 3.4 g/dL (3.5-5.0); Anion Gap 10 (12-20); Aspartate Amino Transferase 18 U/L (5-31); Bilirubin Total 0.4 mg/dL (0.0-1.0); Blood Urea Nitrogen 9 mg/dL (9-16); Calcium 8.8 mg/dL (8.4-10.2); Carbon Dioxide 23 mmol/L (22-29); Chloride 108 mmol/L (96-108); Creatinine Clr Calc Pharmacy 97.5; Estimated Glomerular Filt Rate > 60; Glucose Random 94 mg/dL (60-115); Lipase 25 U/L (8-78); Magnesium 2.1 mg/dL (1.6-2.6); Potassium 4.2 mmol/L (3.3-5.1); Sodium 137 mmol/L (135-145); Total Protein 6.6 g/dL (6.5-8.0)
[2024-03-11 01:19] LABS: HCG Quantitative < 2 mIU/mL
[2024-03-11 01:23] LABS: Alanine Aminotransferase 20 U/L (0-31); Alkaline Phosphatase 48 U/L (39-117)
[2024-03-11 01:57] VITALS: BP 119/75; PULSE 82; RESP 16; TEMP 36.6; O2SAT 97
[2024-03-11 03:15] VITALS: BP 119/75; PULSE 82; RESP 16; TEMP 36.6; O2SAT 97
== END 2024-03-11 03:16 | disposition home or self-care (01) ==
PROVIDERS: Physician Assistant; Physician Assistant Medical; Emergency Provider Internal Medicine
DX: B34.9 Viral infection, unspecified (principal); R05.9 Cough, unspecified; R10.11 Right upper quadrant pain; R50.9 Fever, unspecified; R51.9 Headache, unspecified; Z79.899 Other long term (current) drug therapy; Z03.818 Encounter for observation for suspected exposure to other biological agents ruled out
CPT/HCPCS: 0241U; 36415; 71045; 76705; 80053; 83690; 83735; 84702; 85025; 96360; 96361; 99284

== ENCOUNTER 2024-06-07 01:01 | Emergency (ER) | payer OTHER, SELFPAY ==
--- NOTE | ~2024-06-07 | XR_ITS ---
CLINICAL HISTORY: SOB EXAM: One view chest x-ray COMPARISON: CR/SR - XR CHEST 1V - 03/11/24 01:31 EST FINDINGS: Normal cardiac, mediastinal, and hilar contours. Normal heart size. No pleural effusion or pneumothorax. Lungs are clear. No acute bone finding. IMPRESSION: 1. No acute cardiopulmonary process demonstrated. This document has been electronically signed by: Rayshawn Callahan MD on 06/07/2024 01:55:51
[2024-06-07 01:05] VITALS: BP 113/73; PULSE 94; RESP 18; TEMP 37.2; O2SAT 100; BMI 33.9
--- NOTE | 2024-06-07 01:09 | ECG_ITS ---
Test Reason : DYSPNEA Blood Pressure : */* mmHG Vent. Rate : 80 BPM Atrial Rate : 80 BPM P-R Int : 150 ms QRS Dur : 72 ms QT Int : 348 ms P-R-T Axes : 49 23 22 degrees QTcB Int : 401 ms Normal sinus rhythm Normal ECG When compared with ECG of 29-Oct-2023 15:43, No significant change was found Referred By: Generic ED Physician Electronically Signed By: EDWARDO PÉREZ
--- NOTE | 2024-06-07 01:19 | MHC.EDTECH ---
Pt brought into triage area,EKG taken per order and signed by provider, Sars/flu/rsv obtained and sent to lab
--- NOTE | 2024-06-07 01:45 | ED.SOB ---
HPI - SOB/Dyspnea General Chief Complaint: Dyspnea Stated Complaint: SOB/cough Time Seen by Provider: 06/07/24 01:45 Source: patient Mode of arrival: ambulatory Limitations: no limitations History of Present Illness ED Provider: HPI Narrative: Patient with no significant past medical history complaining of cough mostly dry with shortness a breath for last 2 weeks also complaining of diffuse chest pain saturating 100% at room air no history of asthma also complaining of pain all over the body Related Data Home Medications ?Medication ?Instructions ?Recorded ?Confirmed desogestrel 0.15 mg-ethinyl 1 tab PO DAILY 11/16/22 11/16/22 estradiol 0.03 mg tablet (Apri) Previous Rx's ?Medication ?Instructions ?Recorded amoxicillin 875 mg-potassium 1 tab PO BID #14 tabs 11/19/22 clavulanate 125 mg tablet azithromycin 500 mg tablet 500 mg PO DAILY 7 days #7 tabs 11/19/22 benzonatate 100 mg capsule 100 mg PO TID #20 caps 11/19/22 nitrofurantoin 100 mg PO Q12H 5 days #10 caps 06/04/23 monohydrate/macrocrystals 100 mg capsule (Macrobid) meclizine 25 mg tablet 25 mg PO TID PRN dizziness #20 tabs 10/29/23 benzonatate 200 mg capsule 200 mg PO TID PRN cough #20 caps 06/07/24 cefuroxime axetil 500 mg tablet 500 mg PO BID 7 days #14 tabs 06/07/24 ibuprofen 600 mg tablet 600 mg PO Q6H PRN fever or pain 06/07/24 #30 tabs Allergies Allergy/AdvReac Type Severity Reaction Status Date / Time No Known Allergies Allergy Verified 06/07/24 01:08 Review of Systems Review of Systems: Yes all other systems are reviewed and are negative PMFSH Social History Social History Household Members: Family Household Members Other:: Niece Housing: Apartment Do you presently have visiting nurse or other home services: No Unable to assess alcohol history related to: Unknown Alcohol intake: never Patient Tobacco Use Status: Never used Tobacco Use of substances other than those prescribed or required for medical reasons: No Advance Directives: No Do you have a plan to hurt others: No Plan service: No Physical Exam Vital Signs: Vital Signs: Last Vital Signs Temp 97.6 F 06/07/24 02:16 Pulse 87 06/07/24 02:16 Resp 16 06/07/24 02:16 BP 102/69 06/07/24 02:16 Pulse Ox 100 06/07/24 02:16 O2 Del Method Room Air 06/07/24 02:16 BMI result Body Mass Index 33.9 Appearance: Alert. Oriented X3. No acute distress. Eyes: No pallor or icterus ENT: Pharynx normal. Oral Mucosa moist Neck: Normal inspection. Neck supple. CVS: Normal heart rate and rhythm. Pulses normal. Respiratory: No respiratory distress. Equal air entry bilateral, no wheezing/rales/rhonchi Abdomen: Soft and nontender. Bowel sounds are present, no mass palpable, no CVA tenderness Skin: Skin warm and dry. Normal skin color. Normal skin turgor. Extremities: No lower extremity edema. No calf tenderness Neuro: Oriented X 3. No motor deficit. Medications Administered Discontinued Medications Generic Name Dose Route Start Last Admin Trade Name Freq PRN Reason Stop Dose Admin Ibuprofen 600 mg 06/07/24 03:09 06/07/24 03:12 Ibuprofen 600 Mg Tablet PO 06/07/24 03:10 600 mg ONCE ONE Administration Medical Decision Making Medical Decision Making [facility] Narrative: Patient has acute bronchitis with diffuse chest wall pain chest x-ray COVID flu negative will prescribe cefuroxime cough drops and ibuprofen Lab Data [facility] Lab Attestation statement: I reviewed the patient's lab results. Labs: Lab Results 06/07/24 Range/Units 01:19 Influenza Type A (PCR) NEGATIVE (Negative) Influenza Type B (PCR) NEGATIVE (Negative) RSV RNA Qual (PCR) NEGATIVE (Negative) SARS-CoV-2 RNA (RT-PCR) NEGATIVE (Negative) Independent Interpretation I performed an independent interpretation of an: Plain X-Ray Interpretation: NAD Radiology Impression Discussion of test interpretation with radiology: I have reviewed the radiologist's reading. Discharge Plan Discharge Clinical Impression: Acute bronchitis Patient Disposition: Home, Self-Care Instructions: Acute Bronchitis (ED) Additional Instructions: Take antibiotic cough drops as prescribed Ibuprofen for pain Follow with your PCP if not better Prescriptions: New benzonatate 200 mg capsule 200 mg PO TID PRN (Reason: cough) Qty: 20 0RF cefuroxime axetil 500 mg tablet 500 mg PO BID 7 Days Qty: 14 0RF ibuprofen 600 mg tablet 600 mg PO Q6H PRN (Reason: fever or pain) Qty: 30 0RF No Action desogestrel-ethinyl estradiol [Apri] 0.15-0.03 mg tablet 1 tab PO DAILY benzonatate 100 mg Capsule 100 mg PO TID Qty: 20 0RF azithromycin 500 mg tablet 500 mg PO DAILY 7 Days Qty: 7 0RF amoxicillin-pot clavulanate 875-125 mg tablet 1 tab PO BID Qty: 14 0RF meclizine 25 mg tablet 25 mg PO TID PRN (Reason: dizziness) Qty: 20 0RF nitrofurantoin monohyd/m-cryst [Macrobid] 100 mg capsule 100 mg PO Q12H 5 Days Qty: 10 0RF Rx Instructions: must administer with a meal/food Print Language: Chinese
[2024-06-07 02:16] VITALS: BP 102/69; PULSE 87; RESP 16; TEMP 36.4; O2SAT 100
[2024-06-07 02:46] LABS: Influenza A PCR NEGATIVE (Negative); Influenza B PCR NEGATIVE (Negative); Resp Syncy Virus RNA Qual PCR NEGATIVE (Negative); SARS COV2 PCR INHOUSE NEGATIVE (Negative)
[2024-06-07] MEDS: Ibuprofen 600 MG TABLET PO (03:12)
[2024-06-07] MEDS: cefuroxime axetiL 500 MG TABLET PO (03:26)
[2024-06-07] MEDS: Benzonatate 100 MG CAPSULE 200 MG PO (03:26)
[2024-06-07 03:29] VITALS: BP 102/69; PULSE 87; RESP 16; TEMP 36.4; O2SAT 100
== END 2024-06-07 03:30 | disposition home or self-care (01) ==
PROVIDERS: Emergency Provider Internal Medicine
DX: J20.9 Acute bronchitis, unspecified (principal); R06.02 Shortness of breath; R05.9 Cough, unspecified; Z03.818 Encounter for observation for suspected exposure to other biological agents ruled out
CPT/HCPCS: 0241U; 71045; 93005; 99283; 99285

== ENCOUNTER → 2024-06-07 01:09 | Outpatient (BNV) | payer OTHER, SELFPAY | PROVIDERS: Emergency Provider Internal Medicine; Visit Provider Internal Medicine | DX: R06.00 Dyspnea, unspecified (principal) | CPT/HCPCS: 93010 ==

== ENCOUNTER → 2024-06-07 01:20 | Outpatient (BNV) | payer OTHER, SELFPAY | PROVIDERS: Emergency Provider Internal Medicine; Visit Provider Radiology Diagnostic Radiology | DX: R06.02 Shortness of breath (principal) | CPT/HCPCS: 71045 ==

== ENCOUNTER 2024-09-28 07:54 | Emergency (ER) | payer OTHER, SELFPAY ==
--- NOTE | ~2024-09-28 | XR_ITS ---
EXAMINATION: XR CHEST 2 VIEWS HISTORY: COUGH, FEVER COMPARISON: Comparison is made with the prior examination dated 06/07/2024. FINDINGS: PA and lateral views of the chest are submitted. The lungs are expanded and clear. There is no pleural effusion, pneumothorax, or pulmonary vascular congestion. The heart is normal in size. The bones are intact. XR/XR chest 2V IMPRESSION: No acute cardiopulmonary abnormality. Electronically signed by: Deion Briseno MD 09/28/2024 08:59 AM EDT
[2024-09-28 08:09] VITALS: BP 143/89; PULSE 91; RESP 18; TEMP 37.2; O2SAT 99; BMI 35.3
--- OUTSIDE RECORDS SUMMARY | 2024-09-28 09:04 | XMS_ITS | Clinical Summary ---
Author Organization [employer] Address [address] [place] [address] Care Team Providers Care Camp Nurse Name Role Phone Cachorro Santa MD Primary Care Provider [phone] Abigail Vargas LLD Unavailable [phone] Allergies No known active allergies Medications azithromycin (Zithromax) 500 MG tablet TAKE 1 TABLET BY MOUTH EVERY DAY FOR 7 DAYS 11/19/2022 Active citalopram (CeleXA) 10 MG tablet Take 1 tablet (10 mg) by mouth Once per day. 30 tablet 11/26/2023 Active levonorgestrel-e thinyl estradiol (Aviane, Alesse, Lessina) 0.1-20 MG-MCG tablet Take 1 tablet by mouth Once per day. 28 tablet 11/26/2023 Active Active Problems Problem Noted Date Diagnosed Date Dental caries 05/20/2023 Social History Tobacco Use Types Packs/Day Years Used Date Smoking Tobacco: Never Passive Smoke Exposure: Never Smokeless Tobacco: Never Tobacco Cessation:Counseling Given: Not Answered Depression Answer Date Recorded Patient Health Questionnaire-9 Score 7 11/26/2023 Patient Health Questionnaire-9 Score 7 11/26/2023 Last PHQ-9: Questionnaire Data Not on file 0 11/26/2023 Housing Stability Answer Date Recorded What is your housing situation today? I have susie meza 11/26/[address] you li ve. Do you have problems with any of the following? None of the above 11/26/2023 Food Insecurity Answer Date Recorded Within the past 12 months, y ou worried that your food would run out before you got money to buy more: Never True 11/26/2023 Within the past 12 months,th e food you bought just didn't last and you didn't have enough money to get more: Never True 05/2023 Transportation Answer Date Recorded In the past 12 months, has l ack of transportation kept you from medical appts, meetings, work or from getting things needed for daily living? No 11/26/2023 Utilities Answer Date Recorded In the past 12 months, has t he electric, gas, oil or water company threatened to shut off services in your home? No 11/26/2023 Depression Answer Date Recorded Patient Health Questionnaire-2 Score 4 11/26/2023 Internet Access Answer Date Recorded Internet Access Q1 No 11/26/2023 Internet Access Q2 I do not want or need it 05/2023 Comments Unknown Sex and Gender Information Value Date Recorded Sex Assigned at Female 04/04/2022 2:23 PM EST Legal Sex Female 10:41 AM EST Gender Identity Female 02/21/2022 10:41 AM EST Sexual Orientation Straight 02/21/2022 10 :41 AM EST Last Filed Vital Signs Vital Sign Reading Time Taken Comments Blood Pressure 113/75 11/26/2023 3:48 PM EDT Pulse 71 11/26/2023 3:48 PM EDT Temperature 36.1 C (97 F) 11/26/2023 3:48 PM EDT Respiratory Rate - - Oxygen Saturation 100% 11/26/2023 3:48 PM EDT Inhaled Oxygen Concentration - - Weight 88.6 kg (195 lb 6.4 oz) 11/26/2023 3:48 P M EDT Height 165.1 cm (5' 5 ) 11/26/2023 3:48 PM EDT Body Mass Index 32.52 11/26/2023 3:48 PM EDT Plan of Treatment Health Maintenance Due Date Last Done Comments Dental Oral Exam 1988 Dental Prophylaxis 1988 Dental X-Ray: Bitewings 1988 HIV Screening 1988 Lipid Panel 1988 Disability Screening 1988 Alcohol/Substance Use Screening 2000 Family Planning (PISQ) 2003 Hepatitis C Screening 2006 DTaP/Tdap/Td Vaccines (1 - Tdap) 2007 Hepatitis B Vaccines (1 of 3 - 19+ 3-dose series) 2007 Pap Smear 2009 Cervical Cancer Screening 2018 HPV/Cotest 2018 COVID-19 Vaccine (1 - 2023-2 5 season) 2023 Tobacco Screening 05/20/2024 05/20/2023 Influenza Vaccine (#1) 2024 Depression Screening 11/25/2024 11/26/2023, 11/26/2023 SDOH Screening 11/25/2024 11/26/2023 Dental X-Ray: Full Mouth 04/13/2026 04/12/2023 Zoster Vaccines (1 of 2) 2038 RSV Patients and Patients Aged 60 years or older (1 - 1-dose 75+ series) 2063 HIB Vaccines Aged Out No longer eligi ble based on patient's age to complete this topic HPV Vaccines Aged Out No longer eligi ble based on patient's age to complete this topic Hepatitis A Vaccines Aged Out No long er eligible based on patient's age to complete this topic IPV Vaccines Aged Out No longer eligi ble based on patient's age to complete this topic Meningococcal B Vaccine Aged Out No l onger eligible based on patient's age to complete this topic Meningococcal Vaccine Aged Out No [place] yossi eligible based on patient's age to complete this topic Pneumococcal Vaccine: Pediatrics (0 to 5 Years) and At-Risk Patients (6 to 49) Years Aged Out No longer eligible b ased on patient's age to complete this topic RSV under 20 months Aged Out No longe r eligible based on patient's age to complete this topic Rotavirus Vaccines Aged Out No longer eligible based on patient's age to complete this topic Procedures Procedure Name Priority Date/Time Associated Diagnosis Comments Full PANORAMIC RADIOGRAPHIC IMAGE Routine 04/12/2023 9:30 AM EST from Last 3 Months or Most Recently Relevant to Health Maintenance Insurance [facility] PARTIAL DENT[facility] ADULT DENTAL - [facility] PARTIAL (MEDICAID) Care Teams Camp Nurse Relationship Specialty Start Date End Date Cachorro Santa MD PCP - General Internal Medicine 11/06/22 Abigail Vargas LLD [address] [place] [id number] Dentist 03/22/23
--- NOTE | 2024-09-28 09:10 | ED.URI ---
HPI - URI/Sore Throat General Chief Complaint: Upper Respiratory Symptoms Stated Complaint: Cough, abd pain Time Seen by Provider: 09/28/24 08:34 Source: patient and RN notes reviewed Mode of arrival: ambulatory Limitations: no limitations History of Present Illness ED Provider: Kandice Block PA-C HPI Narrative: This is a 34-year-old female, no known medical problems, who presents emergency department with complaints of productive cough x1 month. She denies any fevers, chills, chest pain, shortness of breath, abdominal pain, nausea, vomiting or diarrhea. She does report dysuria, and urinary frequency and urgency for the last week. Denies any vaginal discharge. Denies chance of . Last menses was last month. No sore throat, or congestion. She is a nonsmoker. No sick contacts. 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 No other complaints or concerns at this time. MD elicited complaint: cough Onset (ago): day(s) Consistency: constant Able to tolerate fluids by mouth: Yes Exacerbating factors: nothing Relieving factors: nothing Associated symptoms: denies other symptoms Treatments prior to arrival: none Related Data Home Medications ?Medication ?Instructions ?Recorded ?Confirmed desogestrel 0.15 mg-ethinyl 1 tab PO DAILY 11/16/22 11/16/22 estradiol 0.03 mg tablet (Apri) Previous Rx's ?Medication ?Instructions ?Recorded amoxicillin 875 mg-potassium 1 tab PO BID #14 tabs 11/19/22 clavulanate 125 mg tablet azithromycin 500 mg tablet 500 mg PO DAILY 7 days #7 tabs 11/19/22 benzonatate 100 mg capsule 100 mg PO TID #20 caps 11/19/22 nitrofurantoin 100 mg PO Q12H 5 days #10 caps 06/04/23 monohydrate/macrocrystals 100 mg capsule (Macrobid) meclizine 25 mg tablet 25 mg PO TID PRN dizziness #20 tabs 10/29/23 benzonatate 200 mg capsule 200 mg PO TID PRN cough #20 caps 06/07/24 cefuroxime axetil 500 mg tablet 500 mg PO BID 7 days #14 tabs 06/07/24 ibuprofen 600 mg tablet 600 mg PO Q6H PRN fever or pain 06/07/24 #30 tabs benzonatate 100 mg capsule 100 mg PO TID PRN cough #20 caps 09/28/24 cefuroxime axetil 500 mg tablet 500 mg PO BID 7 days #14 tabs 09/28/24 ibuprofen 600 mg tablet 600 mg PO Q6H PRN pain #30 tabs 09/28/24 Allergies Allergy/AdvReac Type Severity Reaction Status Date / Time No Known Allergies Allergy Verified 09/28/24 08:11 Review of Systems Review of Systems: Yes all other systems are reviewed and are negative Constitutional: Constitutional: Reports as per [facility] Social History Social History Household Members: Family Household Members Other:: Niece Housing: Apartment Do you presently have visiting nurse or other home services: No Unable to assess alcohol history related to: Unknown Alcohol intake: never Patient Tobacco Use Status: Never used Tobacco Smoked in Last 30 Days: No Use of substances other than those prescribed or required for medical reasons: No Advance Directives: No Advance Directives Information Provided: Yes Do you have a plan to hurt others: No Plan service: No Physical Exam Vital Signs: Vital Signs: Last Vital Signs Temp 97.4 F 09/28/24 09:32 Pulse 74 09/28/24 09:32 Resp 16 09/28/24 09:32 BP 128/79 09/28/24 09:32 Pulse Ox 100 09/28/24 09:32 O2 Del Method Room Air 09/28/24 09:32 BMI result Body Mass Index 35.3 Const: General: cooperative, comfortable and no acute distress Orientation/consciousness: patient oriented x3 Limitations: no limitations HEENT: Head: Yes normal to inspection, Yes normocephalic and Yes atraumatic Ears: hearing grossly normal bilaterally General nose exam: Normal external nose present Face and sinus: Yes normal facial exam Mouth: Normal oral and palatal mucosa present, oropharynx normal and moist mucous membranes Throat: Yes posterior oropharynx normal Eyes: General: appearance normal, both eyes and all related structures Eyelids: Yes eyelids normal Conjunctivae: conjunctivae normal Sclerae: sclerae normal Pupils: Equal, round and reactive pupils present EOM: EOMs intact bilaterally Neck: Neck: Yes normal visual inspection, Yes full ROM and Yes no lymphadenopathy Lymphatic: no lymphadenopathy noted Chest: Chest palpation & inspection: normal inspection of the chest Resp: Effort & Inspection: normal respiratory effort and able to speak in complete sentences Auscultation: clear to auscultation bilaterally, no crackles, no rales, no rhonchi and no wheezes Cardio: Rate: regular rate Rhythm: regular rhythm Heart sounds: S1 normal heart sound present and S2 normal heart sound present GI: Inspection: Yes normal to inspection Skin: General skin exam: no rashes or lesions noted Trauma: no lacerations or abrasions Wounds: no wounds Neuro: General: patient oriented x3 and moves all extremities Cranial nerves: Yes Equal, round and reactive pupils present Extrem: General: Yes normal to inspection Right upper extremity: normal to inspection Left upper extremity: normal to inspection Right lower extremity: normal to inspection Left lower extremity: normal to inspection Medical Decision Making Medical Decision Making [facility] Narrative: This is a 34-year-old female who presents emergency department with concerns of cough for the last month. Reports cough is productive with white colored sputum. No sick contacts. On arrival, blood pressure mildly elevated 143/89, all other vital signs within normal limits. She is speaking full sentences under no acute distress. Lungs are clear to auscultation. Differential diagnoses include URI, COVID, flu, RSV, reactive airway disease. Will obtain viral swabs and chest x-ray, as well as urine sample. Course: Patient tested negative for COVID, flu, RSV. Chest x-ray unremarkable for any acute process. Urine with small leuk esterases and wbc's. There are squamous cells, this could be contaminated however given patient is symptomatic, will treat with course of antibiotics. Will also discharged with Tessalon and ibuprofen. Given strict return precautions. She understands and agrees with plan. Patient stable for discharge. Differential Diagnosis Differential Diagnoses: The differential diagnosis associated with the presentation includes See above Admission/Observation Consideration of admission/observation: Escalation of care including admission/observation considered Lab Data [facility] Lab Attestation statement: I reviewed the patient's lab results. Labs: Lab Results 09/28/24 09/28/24 Range/Units 08:35 09:35 Urine Color Yellow Urine Appearance Clear Urine pH 5.5 (5.0-9.0) Ur Specific [place] 1.010 (1.005-1.025) Urine Protein Negative (Neg-Trace) mg/dL Urine Glucose (UA) Negative (Negative) mg/dL Urine Ketones Negative (Negative) mg/dL Urine Blood Negative (Negative) Urine Nitrite Negative (Negative) Ur Leukocyte Esterase Small (1+) H (Negative) Urine RBC 0-2 (0-2) /HPF Urine WBC 11-20 H (0-5) /HPF Ur Squamous Epith Cells 6-10 (0-2) /HPF Urine Bacteria None Seen (None Seen) Hyaline Casts 0-2 (0-2) /LPF Urine Test NEGATIVE (NEGATIVE) Influenza Type A (PCR) NEGATIVE (Negative) Influenza Type B (PCR) NEGATIVE (Negative) RSV RNA Qual (PCR) NEGATIVE (Negative) SARS-CoV-2 RNA (RT-PCR) NEGATIVE (Negative) Radiology Impression Discussion of test interpretation with radiology: I have reviewed the radiologist's reading. Radiologist Impression: EXAMINATION: XR CHEST 2 VIEWS HISTORY: COUGH, FEVER COMPARISON: Comparison is made with the prior examination dated 06/07/2024. FINDINGS: PA and lateral views of the chest are submitted. The lungs are expanded and clear. There is no pleural effusion, pneumothorax, or pulmonary vascular congestion. The heart is normal in size. The bones are intact. XR/XR chest 2V IMPRESSION: No acute cardiopulmonary abnormality. Electronically signed by: Deion Briseno MD 09/28/2024 08:59 AM EDT RP Dictated By: Deion Briseno MD Discharge Plan Discharge Clinical Impression: Cough, UTI (urinary tract infection) Patient Disposition: Home, Self-Care Instructions: Urinary Tract Infection in Women (ED), Acute Cough (ED) Additional Instructions: You were seen in the emergency department due to cough and urinary symptoms. Your chest x-ray does not show a pneumonia. Your urine is concerning for a possible urinary tract infection. Please take prescribed antibiotic as directed, finish the entire course even if your symptoms improve. Tessalon Perles can also help with your cough. Please get plenty of rest, drink plenty of fluids. You may take ibuprofen as needed for pain and fevers. If any new or worsening symptoms occur including but not limited to severe chest pain, shortness of breath, please return for re-evaluation. Prescriptions: New cefuroxime axetil 500 mg tablet 500 mg PO BID 7 Days Qty: 14 0RF benzonatate 100 mg capsule 100 mg PO TID PRN (Reason: cough) Qty: 20 0RF ibuprofen 600 mg tablet 600 mg PO Q6H PRN (Reason: pain) Qty: 30 0RF No Action desogestrel-ethinyl estradiol [Apri] 0.15-0.03 mg tablet 1 tab PO DAILY benzonatate 100 mg Capsule 100 mg PO TID Qty: 20 0RF azithromycin 500 mg tablet 500 mg PO DAILY 7 Days Qty: 7 0RF amoxicillin-pot clavulanate 875-125 mg tablet 1 tab PO BID Qty: 14 0RF meclizine 25 mg tablet 25 mg PO TID PRN (Reason: dizziness) Qty: 20 0RF nitrofurantoin monohyd/m-cryst [Macrobid] 100 mg capsule 100 mg PO Q12H 5 Days Qty: 10 0RF Rx Instructions: must administer with a meal/food benzonatate 200 mg capsule 200 mg PO TID PRN (Reason: cough) Qty: 20 0RF cefuroxime axetil 500 mg tablet 500 mg PO BID 7 Days Qty: 14 0RF ibuprofen 600 mg tablet 600 mg PO Q6H PRN (Reason: fever or pain) Qty: 30 0RF Stand Alone Forms: Work/School Release Print Language: Surinamese
[2024-09-28 09:18] LABS: Resp Syncy Virus RNA Qual PCR NEGATIVE (Negative); SARS COV2 PCR INHOUSE NEGATIVE (Negative)
[2024-09-28 09:32] VITALS: BP 128/79; PULSE 74; RESP 16; TEMP 36.3; O2SAT 100
[2024-09-28 09:43] LABS: UPreg QC Valid YES
[2024-09-28 09:44] LABS: Appearance Urine Clear; Glucose Urine UA Negative (Negative); PH 5.5 (5.0-9.0); Specific Gravity - Urine 1.010 (1.005-1.025); UMIC TRIGGER UACC YES
[2024-09-28 09:46] LABS: UACC Culture Trigger YES
[2024-09-28 10:32] VITALS: BP 128/79; PULSE 74; RESP 16; TEMP 36.3; O2SAT 100
== END 2024-09-28 10:33 | disposition home or self-care (01) ==
PROVIDERS: Physician Assistant Medical; Emergency Provider Emergency Medicine
DX: R05.9 Cough, unspecified (principal); N39.0 Urinary tract infection, site not specified; R10.2 Pelvic and perineal pain; R50.9 Fever, unspecified; Z03.818 Encounter for observation for suspected exposure to other biological agents ruled out
CPT/HCPCS: 71046; 81001; 81025; 87086; 87637; 99283; 99284

== ENCOUNTER → 2024-09-28 08:50 | Outpatient (BNV) | payer OTHER, SELFPAY | PROVIDERS: Emergency Provider Emergency Medicine; Visit Provider Radiology Diagnostic Radiology | DX: R05.9 Cough, unspecified (principal); R50.9 Fever, unspecified | CPT/HCPCS: 71046 ==